=== PATIENT | female | born 1945 | race Caucasian/White ===

== ENCOUNTER → 2017-12-28 10:45 | Outpatient (CLI) | payer OTHER, SELFPAY ==
[2017-12-28 11:24] LABS: Add Manual Diff / Slide Review NO; Basophils Percent Auto 0.5 % (0-2); Eosinophils Percent Auto 0.5 % (2-4); Hematocrit 45.2 % (36-46); Lymphocytes Percent Auto 23.9 % (25-40); Mean Corpuscular HGB Conc 33.3 % (30-36); Mean Corpuscular Hemoglobin 29.3 PG (26-34); Monocytes Percent Auto 7.7 % (3-14); Neutrophils Absolute Auto 6100 /uL (3000-5900); Neutrophils Percent Auto 67.4 % (50-75); Platelet Count 161 X10^3/uL (150-400); Red Blood Cell Count 5.13 X10^6/uL (4.0-5.2); Red Cell Distribution Width 14.5 % (11.6-14.8)
== END ==
PROVIDERS: Family Provider Internal Medicine; PCP Internal Medicine; Visit Provider Internal Medicine
DX: J32.9 Chronic sinusitis, unspecified (principal)
CPT/HCPCS: 36415; 85025

== ENCOUNTER → 2017-12-30 10:57 | Outpatient (CLI) | payer OTHER, SELFPAY ==
--- NOTE | 2017-12-30 | DI.CT.S_ITS ---
PROCEDURE: CT SINUS SCREEN WO CON INDICATIONS: CHRONIC SINUSITIS TECHNIQUE: Noncontrast 3.0 mm axial images acquired from the frontal sinuses to the mid-sella, with coronal and sagittal reformats. For radiation dose reduction, the following was used: automated exposure control, adjustment of mA and/or kV according to patient size. COMPARISON: [facility], RG, CT SINUS, 05/27/2004, 13:04. [facility], MR, BRAIN WITH AND WITHOUT CONTRAS, 02/16/2011, 11:37. FINDINGS: Image quality: Excellent. Sinuses: There is very minimal ethmoid, frontal and sphenoid mucosal thickening. No fluid levels are identified. Appearance is relatively unchanged compared to prior exam of 02/16/11. Ostiomeatal Complexes: Ostiomeatal complexes are patent. Mild narrowing is noted bilaterally secondary to a mild ethmoid bulla air cell appearance. This is unchanged compared to prior exam. No Cynthia cells. Miscellaneous: Visualized intra-orbital contents are normal. No misa bullosa. There is a borderline appearance of paradoxical left middle turbinate. Mild to moderate leftward nasal septal deviation. IMPRESSION: 1. Leftward nasal septal deviation with minimal areas of scattered sinus mucosal thickening. Dictated by: Elizabeth Lomas M.D. on 12/30/2017 at 11:26 Approved by: Elizabeth Lomas M.D. on 12/30/2017 at 11:45
== END ==
PROVIDERS: Family Provider Internal Medicine; PCP Internal Medicine; Visit Provider Internal Medicine
DX: J32.9 Chronic sinusitis, unspecified (principal); J34.2 Deviated nasal septum
CPT/HCPCS: 70486

== ENCOUNTER 2018-01-26 08:10 | Emergency (ER) | payer OTHER, SELFPAY ==
[2018-01-26 08:22] VITALS: BP 168/76; PULSE 102; RESP 16; TEMP 36.2; O2SAT 95; BMI 26.9
--- NOTE | 2018-01-26 08:33 | DI.CT.S_ITS ---
PROCEDURE: CT ABDOMEN PELVIS W CON INDICATIONS: Abdomen pain with history of paritial colectomy TECHNIQUE: After the administration of intravenous contrast, 5 mm thick sections acquired from the diaphragm to the symphysis. 5 mm coronal and sagittal reformats were acquired. For radiation dose reduction, the following was used: automated exposure control, adjustment of mA and/or kV according to patient size. COMPARISON: [facility], CT, ABDOMEN/PELVIS WITH CONTRAST, 03/23/2013, 9:53. [facility], CT, ABDOMEN/PELVIS WITH CONTRAST, 02/17/2013, 14:23. [facility], CT, ABDOMEN/PELVIS WITH CONTRAST, 12/26/2012, 8:48. FINDINGS: Image quality: Excellent. ABDOMEN: Lung bases: Lung bases are clear. Heart size is normal. Solid organs: Liver is normal in size and enhancement. The liver again is seen to contain a lobulated water density cyst superiorly on the left. Gallbladder has been previously resected. Biliary system is non dilated. Pancreas enhances normally. Spleen is normal in size and enhancement. No adrenal nodules. Kidneys demonstrate normal size and enhancement, without hydronephrosis. Peritoneum and bowel: Bowel loops demonstrate normal wall thickness and caliber. No free fluid or air. Nodes and vessels: No retroperitoneal or mesenteric adenopathy by size criteria. Aorta and inferior vena cava are normal in size. Miscellaneous: No ventral hernias. PELVIS: Genitourinary: Bladder wall thickness is normal. Hysterectomy appears to have been performed. Miscellaneous: No inguinal hernias or adenopathy. A normal appendix is found at the right lower quadrant. Several enteric staple lines are seen within the mid and lower left pelvis. No mass lesion identified that would indicate presence of anastomotic recurrence of neoplasm in this patient with reported prior colectomy approximately 5 years ago. Bones: No suspicious bony lesions. No vertebral body compression fractures. IMPRESSION: Postsurgical changes within the abdomen/pelvis as discussed but no evidence of postoperative complication is found. No underlying infection or neoplasm is seen. Normal appendix found. No sign of intestinal obstruction or perforation seen. Dictated by: Chaitanya Yao M.D. on 01/26/2018 at 9:22 Approved by: Chaitanya Yao M.D. on 01/26/2018 at 9:26
--- NOTE | 2018-01-26 08:37 | ED_ITS ---
HPI - Weakness General Chief complaint: Weakness Stated complaint: INSOMNIA, LETHARGIC AND HARD TO DO ANYTHING Time Seen by Provider: 01/26/18 08:22 Source: patient Mode of arrival: ambulatory Limitations: no limitations History of Present Illness HPI Narrative: Patient is a 73-year-old female who presents with a variety of complaints. Overall she is feeling weak and fatigued. She has loss of appetite he has lost about 10 lb over the last 1 month. She feels like he is belching a lot more, she has very mild abdominal discomfort. No chest pain or shortness of breath. She says that she is passing gas but isn't having regular bowel movements. Her reports that she is not sleeping who she is extremely tired and fatigued. She started having essential tremors and was started on Restoril. She denies any fever, no nausea or vomiting Related Data Home Medications Medication Instructions Recorded Confirmed warfarin [Coumadin] #0 02/02/13 enoxaparin [Lovenox] QDAY #0 04/12/13 levothyroxine [Synthroid] PO AMINS #0 04/12/13 omeprazole OR Q DAY #0 04/12/13 Allergies Allergy/AdvReac Type Severity Reaction Status Date / Time Sulfa (Sulfonamide Allergy Mild RASH Verified 01/26/18 08:22 Antibiotics) [SULFA (SULFONAMIDE ANTIBIOTICS)] amoxicillin [AMOXICILLIN] Allergy Unknown VERY Verified 01/26/18 08:22 FLUSHED clavulanic acid Allergy Unknown VERY Verified 01/26/18 08:22 [CLAVULANIC ACID] FLUSHED epinephrine [EPINEPHRINE] Allergy Unknown SHAKING Verified 01/26/18 08:22 WITH DENTAL PROCEDURES fluticasone [FLUTICASONE] Allergy Unknown AGGITATION Verified 01/26/18 08:22 hydromorphone [HYDROMORPHONE] Allergy Unknown HALLUCINATIONS, Verified 01/26/18 08:22 NAUSEA diazepam [From Valium] Allergy Verified 01/26/18 08:22 meclizine Allergy Verified 01/26/18 08:22 Review of Systems Review of Systems All systems reviewed & are unremarkable except as noted in HPI and below Constitutional Reports difficulty sleeping, Reports fatigue, Denies fever(s), Denies frequent falls, Denies headache(s), Denies increased appetite, Reports lethargy, Reports malaise and Reports poor appetite Eyes Denies change in vision, Denies eye discharge, Denies irritation and Denies loss of vision ENT Ears, Nose, Mouth, and Throat: Denies dysphagia, Denies vertigo, Reports dry mouth and Denies headache(s) Cardiovascular Denies chest pain, Denies irregular heart rhythm, Denies lightheadedness, Denies palpitations, Denies dyspnea, Denies dyspnea on exertion and Denies orthopnea Respiratory Denies cough, Denies dyspnea, Denies dyspnea on exertion and Denies wheezing Gastrointestinal Gastrointestinal: Reports as per HPI, Reports belching, Denies bloating, Denies dysphagia, Denies excessive flatus, Reports early satiety, Denies diarrhea and Denies nausea Musculoskeletal Denies back pain, Denies muscle weakness, Denies numbness and Denies tingling Neurologic Denies vertigo, Denies frequent falls, Denies headache(s), Denies loss of vision , Denies numbness and Denies tingling Endocrine Reports fatigue and Denies palpitations Allergic/Immunologic Denies wheezing PFSH Medical History Essential tremor (Acute) History of DVT (deep vein thrombosis) (Acute) Surgical History History of colon resection (Acute) Social History marital status: household members: spouse Smoking Status: Never smoker alcohol intake: never substance use type: does not use during the past year weight has: decreased > 10 lbs Type(s) of exercise: walking Exam Initial Vital Signs Initial Vital Signs: Vital Signs Temperature 97.1 F L 01/26/18 08:22 Pulse Rate 102 H 01/26/18 08:22 Respiratory Rate 16 01/26/18 08:22 Blood Pressure 168/76 H 01/26/18 08:22 Pulse Oximetry 95 01/26/18 08:22 Const General: cooperative and well developed Nutritional Appearance: well nourished Orientation: alert, awake, oriented x3 and not confused [facility] Mouth: No moist mucous membranes and mucous membranes abnormal (Dry) Chest Chest: normal inspection of the chest Resp Effort & Inspection: normal respiratory effort, able to speak in complete sentences, no respiratory distress and no use of accessory muscles Auscultation: clear to auscultation bilaterally, no rales, no rhonchi and no wheezes Cardio Rate: regular rate Rhythm: regular rhythm Heart Sounds: no click, no gallops, no murmurs and no rubs Pulses: normal peripheral pulses GI Palpation: soft, No firm, No guarding, No mass and tender (Mild lower tenderness with) Percussion: normal to percussion Auscultation: hyperactive bowel sounds Skin General: no rashes or lesions noted, No jaundice and No petechiae Neuro General: alert, oriented x3, gait normal and no focal motor deficits Speech: speech normal Motor: tremor (Bilateral hand) Course Orders Ordered: ED Orders 01/26/18 08:23 Complete Blood Count AUTO DIFF Stat Comprehensive Metabolic Panel Stat Lipase Stat Partial Thromboplastin Time Stat Prothrombin Time INR Stat 01/26/18 08:33 CT abdomen pelvis w con Stat Discontinued Medications Sodium Chloride (Normal Saline 0.9%) 1,000 mls @ 150 mls/hr IV CONT STEVEN Last Infusion: 01/26/18 10:34 Dose: 0 mls/hr Admin: 01/26/18 08:55 Dose: 150 mls/hr Pantoprazole Sodium (Protonix) 40 mg IV NOW ONE Stop: 01/26/18 08:38 Last Admin: 01/26/18 08:54 Dose: 40 mg Vital Signs - 8 hr 01/26/18 08:22 01/26/18 10:32 01/26/18 10:34 Temperature 97.1 F L Pulse Rate 102 H 69 55 L Respiratory Rate 16 20 14 Blood Pressure 168/76 H Blood Pressure [Left Arm] 149/62 H 149/62 H Pulse Oximetry 95 99 97 MDM - Weakness Lab Data Result diagrams: 01/26/18 08:23 01/26/18 08:23 Lab Results 01/26/18 01/26/18 01/26/18 Range/Units 08:23 08:23 08:23 WBC 8.2 (4.5-11.0) X10^3/uL RBC 5.55 H (4.0-5.2) X10^6/uL Hgb 16.7 H (12.0-16.0) g/dL Hct 49.3 H (36-46) % MCV 88.8 (80-100) fL MCH 30.1 (26-34) PG MCHC 33.9 (30-36) % RDW 15.2 H (11.6-14.8) % Plt Count 164 (150-400) X10^3/uL Neut % (Auto) 66.2 (50-75) % Lymph % (Auto) 25.5 (25-40) % [place] % (Auto) 7.1 (3-14) % Eos % (Auto) 0.6 L (2-4) % Baso % (Auto) 0.6 (0-2) % Neut # (Auto) 5400 (0953-6180) /uL PT 11.4 (10.1-12.7) SECONDS INR 1.1 (0.9-1.3) APTT 39 H (26.4-36.2) SECONDS Sodium 145 (137-145) mmol/L Potassium 4.1 (3.4-5.1) mmol/L Chloride 106 (98-107) mmol/L Carbon Dioxide 28 (22-32) mmol/L BUN 17 (7-17) mg/dL Creatinine 1.10 H (0.52-1.04) mg/dL Estimated GFR 48.7 L (>60) mL/min BUN/Creatinine Ratio 15.5 (6-22) Glucose 140 H (80-110) mg/dL Calcium 9.7 (8.4-10.2) mg/dL Total Bilirubin 0.7 (0.2-1.3) mg/dL AST 21 (14-36) IU/L ALT 25 (9-52) IU/L Alkaline Phosphatase 42 (38-126) U/L Total Protein 7.6 (6.3-8.2) g/dL Albumin 4.6 (3.5-5.0) g/dL Globulin 3.0 (1.7-4.1) g/dL Albumin/Globulin Ratio 1.5 (1.0-2.8) Lipase 125 (23-300) U/L Imaging Data CT scan - abdomen: Radiologist's impression: PROCEDURE: CT ABDOMEN PELVIS W CON INDICATIONS: Abdomen pain with history of paritial colectomy TECHNIQUE: After the administration of intravenous contrast, 5 mm thick sections acquired from the diaphragm to the symphysis. 5 mm coronal and sagittal reformats were acquired. For radiation dose reduction, the following was used: automated exposure control, adjustment of mA and/or kV according to patient size. COMPARISON: [facility], CT, ABDOMEN/PELVIS WITH CONTRAST, 03/23/2013, 9: 53. [facility], CT, ABDOMEN/PELVIS WITH CONTRAST, 02/17/2013, 14:23. [facility], CT, ABDOMEN/PELVIS WITH CONTRAST, 12/26/2012, 8:48. FINDINGS: Image quality: Excellent. ABDOMEN: Lung bases: Lung bases are clear. Heart size is normal. Solid organs: Liver is normal in size and enhancement. The liver again is seen to contain a lobulated water density cyst superiorly on the left. Gallbladder has been previously resected. Biliary system is non dilated. Pancreas enhances normally. Spleen is normal in size and enhancement. No adrenal nodules. Kidneys demonstrate normal size and enhancement, without hydronephrosis. Peritoneum and bowel: Bowel loops demonstrate normal wall thickness and caliber. No free fluid or air. Nodes and vessels: No retroperitoneal or mesenteric adenopathy by size criteria. Aorta and inferior vena cava are normal in size. Miscellaneous: No ventral hernias. PELVIS: Genitourinary: Bladder wall thickness is normal. Hysterectomy appears to have been performed. Miscellaneous: No inguinal hernias or adenopathy. A normal appendix is found at the right lower quadrant. Several enteric staple lines are seen within the mid and lower left pelvis. No mass lesion identified that would indicate presence of anastomotic recurrence of neoplasm in this patient with reported prior colectomy approximately 5 years ago. Bones: No suspicious bony lesions. No vertebral body compression fractures. IMPRESSION: Postsurgical changes within the abdomen/pelvis as discussed but no evidence of postoperative complication is found. No underlying infection or neoplasm is seen. Normal appendix found. No sign of intestinal obstruction or perforation seen. Dictated by: Chaitanya Yao M.D. on 01/26/2018 at 9:22 MDM Narrative Medical decision making narrative: She is tolerating oral fluids she has had 1 L of IV fluids CT and blood work within normal limits. She has been having ongoing problems for over a month. She started Restoril which may be complicating her problems. Recommend stopping the Restoril however the problems that she is still unable to sleep. So I recommended Benadryl. I discussed all findings with the patient and spouse. Education has been performed regarding treatment plan, diagnosis, warning signs and symptoms and all concerns have been addressed. Verbally agree with and understood all of the above. Discharge Plan Departure Patient Disposition: Home, Self-Care Clinical Impression: Benign essential tremor, Insomnia Discharge Date/Time: 01/26/18 11:13 Interventions: ED Discharge Assessment Last Done: 01/26/18 10:33 Instructions: Insomnia, Benign Essential Tremor Activity Restrictions/Additional Instructions: *You have been diagnosed with essential tremor, insomnia *What to do: Blood work and CT scan today within normal limits. Slightly dehydrated *Medications: Restoril-1 tablet at night for the next 2 nights, if unable to sleep still then try taking a Benadryl 25mg -then decrease Restoril to every other night for 2-3 doses, and continue taking Benadryl 1 tablet every night to help with sleep -then stopped taking Restoril completely *Follow up with your primary care provider in 2-3 days [and follow up with ortho , urology etc] *Return to ER if you should have [such as] [or] any new, worsening or concerning symptoms Prescriptions: No Action warfarin [Coumadin] 4 MG tablet Qty: 0 RF: 0 enoxaparin [Lovenox] 100 MG/1 ML syringe QDAY Qty: 0 RF: 0 omeprazole 40 MG capsule,delayed release(DR/EC) OR Q DAY Qty: 0 RF: 0 levothyroxine [Synthroid] 75 MCG tablet PO AMINS Qty: 0 RF: 0 Referrals: Dulce Jennings MD [Primary Care Provider] -
[2018-01-26 08:42] LABS: Add Manual Diff / Slide Review NO; Basophils Percent Auto 0.6 % (0-2); Eosinophils Percent Auto 0.6 % (2-4); Hematocrit 49.3 % (36-46); Hemoglobin 16.7 g/dL (12.0-16.0); Lymphocytes Percent Auto 25.5 % (25-40); Mean Corpuscular HGB Conc 33.9 % (30-36); Mean Corpuscular Hemoglobin 30.1 PG (26-34); Mean Corpuscular Volume 88.8 fL (80-100); Monocytes Percent Auto 7.1 % (3-14); Neutrophils Absolute Auto 5400 /uL (3000-5900); Neutrophils Percent Auto 66.2 % (50-75); Platelet Count 164 X10^3/uL (150-400); Red Blood Cell Count 5.55 X10^6/uL (4.0-5.2); Red Cell Distribution Width 15.2 % (11.6-14.8); White Blood Cell Count 8.2 X10^3/uL (4.5-11.0)
[2018-01-26 08:43] LABS: INR 1.1 (0.9-1.3); Prothrombin Time 11.4 SECONDS (10.1-12.7)
[2018-01-26 08:46] LABS: PTT Partial Thromboplastin Tim 39 SECONDS (26.4-36.2)
[2018-01-26 08:51] LABS: Alanine Aminotransferase 25 IU/L (9-52); Albumin 4.6 g/dL (3.5-5.0); Albumin Globulin Ratio 1.5 (1.0-2.8); Alkaline Phosphatase 42 U/L (38-126); Aspartate Aminotransferase 21 IU/L (14-36); BUN Creatinine Ratio 15.5 (6-22); Bilirubin Total 0.7 mg/dL (0.2-1.3); Blood Urea Nitrogen 17 mg/dL (7-17); Calcium 9.7 mg/dL (8.4-10.2); Carbon Dioxide 28 mmol/L (22-32); Chloride 106 mmol/L (98-107); Estimated Glomerular Filt Rate 48.7 mL/min (>60); Glucose 140 mg/dL (80-110); HEMOLYSIS 15 (0-50); Lipase 125 U/L (23-300); Potassium 4.1 mmol/L (3.4-5.1); Sodium 145 mmol/L (137-145); Total Protein 7.6 g/dL (6.3-8.2)
[2018-01-26] MEDS: PANTOPRAZOLE 40 MG VIAL IV (08:54)
[2018-01-26] MEDS: SODIUM CHLORIDE 0.9% 1,000 ML 150 ML IV (08:55)
--- NOTE | 2018-01-26 09:00 | PC.NURSE ---
NS 1000ml given at 999ml/hr per provider verbal order.
[2018-01-26 10:32] VITALS: BP 149/62; PULSE 69; RESP 20; O2SAT 99
[2018-01-26 10:34] VITALS: BP 149/62; PULSE 55; RESP 14; O2SAT 97
== END 2018-01-26 11:13 | disposition home or self-care (01) ==
PROVIDERS: Emergency Provider Emergency Medicine; Family Provider Physician Assistant; PCP Internal Medicine
DX: G25.0 Essential tremor (principal); G47.00 Insomnia, unspecified
CPT/HCPCS: 36591; 74177; 80053; 81003; 83690; 85025; 85610; 85730; 96361; 96374; 99283; 99285; C9113; Q9967

== ENCOUNTER 2018-02-13 13:07 | Emergency (ER) | payer OTHER, SELFPAY ==
[2018-02-13 13:11] VITALS: BP 152/84; PULSE 80; RESP 20; TEMP 37.1; O2SAT 99; BMI 28.6
--- NOTE | 2018-02-13 13:36 | ED.WEAKNESS ---
HPI - Weakness <Mavis Cabrera PA-C - Last Filed: 02/13/18 21:54> General Chief complaint: Weakness Stated complaint: severe chronic insomnia, meds causing problems Time Seen by Provider: 02/13/18 13:35 Source: patient and family Mode of arrival: ambulatory Limitations: no limitations History of Present Illness HPI Narrative: This 73-year-old female comes in due to persistent insomnia for well over a month now. She states that she is exhausted and much less active due to persistent fatigue associated with this. She states that she has less appetite and has lost weight. She has tried various medications prescribed by her primary care office and states none are effective aside from Restoril with which she will sleep for may be 3-4 hours but feels groggy and not rested. She has also been prescribed Benadryl which causes dry mouth, trazodone, and Remeron all of which were ineffective, and Remeron caused some burning type of headache. She has tried combining meds with no improvement. Her states that he was talking with their pharmacist who mentioned several Z drugs that might be worth trying as she has not had these in the past. Patient admits that she has had increased stress in the last several months including her brother being very ill, dealing with moving planned, and friends passing away which have caused her to be anxious and she thinks interfere with sleep. She tends to lay awake in bed for hours worrying and not be able to fall asleep. She and her come in today basically because both of them are feeling like she needs to try something else for sleep and don't feel that this should wait. She denies any acute symptoms such as chest pain, abdominal pain or dyspnea. No new difficulties with speech or coordination. She has been recently diagnosed with essential tremor. States there is no tremor keeping her from sleep at night. She has a history of chronic intermittent vertigo which has recurred somewhat since she has more difficulty sleeping, but no acute symptoms or current symptoms. She states that she has difficulty swallowing if she gets dry mouth from Benadryl, otherwise no difficulty with speech or swallowing or coordination. The only new symptom she notes is noticing some white coating on her tongue and wondering if this could be thrush, but does not have any pain or irritation. Related Data Home Medications Medication Instructions Recorded Confirmed warfarin [Coumadin] #0 02/02/13 enoxaparin [Lovenox] QDAY #0 04/12/13 levothyroxine [Synthroid] PO AMINS #0 04/12/13 omeprazole OR Q DAY #0 04/12/13 Previous Rx's Medication Instructions Recorded nystatin 5 ml PO QID 7 Days #150 ml 02/13/18 zaleplon [Sonata] 10 mg PO DAILY PRN #7 cap 02/13/18 Allergies Allergy/AdvReac Type Severity Reaction Status Date / Time Sulfa (Sulfonamide Allergy Mild RASH Verified 02/13/18 13:17 Antibiotics) [SULFA (SULFONAMIDE ANTIBIOTICS)] amoxicillin [AMOXICILLIN] Allergy Unknown VERY Verified 02/13/18 13:17 FLUSHED clavulanic acid Allergy Unknown VERY Verified 02/13/18 13:17 [CLAVULANIC ACID] FLUSHED epinephrine [EPINEPHRINE] Allergy Unknown SHAKING Verified 02/13/18 13:17 WITH DENTAL PROCEDURES fluticasone [FLUTICASONE] Allergy Unknown AGGITATION Verified 02/13/18 13:17 hydromorphone [HYDROMORPHONE] Allergy Unknown HALLUCINATIONS, Verified 02/13/18 13:17 NAUSEA diazepam [From Valium] Allergy Verified 02/13/18 13:17 meclizine Allergy Verified 02/13/18 13:17 Review of Systems <Mavis Cabrera PA-C - Last Filed: 02/13/18 21:54> Review of Systems All systems reviewed & are unremarkable except as noted in HPI and below Exam <Mavis Cabrera PA-C - Last Filed: 02/13/18 21:54> Narrative Exam Narrative: GENERAL APPEARANCE: Patient sitting comfortably, in no distress. HEENT: PERRL, EOMI, moderate left lid ptosis noted, there is mild white coating on the tongue that is even and does not scrape off with tongue depressor, normal oropharynx NECK: Supple LUNGS: Clear to auscultation bilaterally. HEART: Rate and rhythm regular without murmur, normal S1 and S2, no S3 or S4. ABDOMEN: Soft, NT, ND, + BS x 4 quadrants NEUROLOGIC: Alert and oriented, normal speech and coordination, gait is slightly shortened with a wide base, occasional left upper extremity tremor noted EXTREMITIES: No edema Initial Vital Signs Initial Vital Signs: Vital Signs Temperature 98.8 F 02/13/18 13:11 Pulse Rate 80 02/13/18 13:11 Respiratory Rate 20 02/13/18 13:11 Blood Pressure 152/84 H 02/13/18 13:11 Pulse Oximetry 99 02/13/18 13:11 <Breezy Stewart MD - Last Filed: 02/14/18 08:57> Initial Vital Signs Initial Vital Signs: Vital Signs Temperature 98.8 F 02/13/18 13:11 Pulse Rate 80 02/13/18 13:11 Respiratory Rate 20 02/13/18 13:11 Blood Pressure 152/84 H 02/13/18 13:11 Pulse Oximetry 99 02/13/18 13:11 Course <Mavis Cabrera PA-C - Last Filed: 02/13/18 21:54> Additional Information: I had a long discussion with patient and her regarding contribution of recent stressors and anxiety to her insomnia, and need for behavioral treatment measures rather than just medication, and they seem to understand this. Advised to discuss with PCP whether daily medications such as Zoloft may be helpful in treating underlying condition. She has numerous ongoing medical issues including newly diagnosed tremor, somewhat shuffling gait noted at visit today but she has no acute issues and in fact GI symptoms resolved since last visit. She was given a prescription to try sonata prior to follow up with her PCP. She has no history of seizure disorder or sleep walking. Discussed with she and her that there is basically no sleep medication that is recommended for the elderly for any long-term, but reasonable to try for short-term and they are agreeable Vital Signs - 8 hr 02/13/18 13:11 Temperature 98.8 F Pulse Rate 80 Respiratory Rate 20 Blood Pressure 152/84 H Pulse Oximetry 99 <Breezy Stewart MD - Last Filed: 02/14/18 08:57> Vital Signs - 8 hr 02/13/18 13:11 Temperature 98.8 F Pulse Rate 80 Respiratory Rate 20 Blood Pressure 152/84 H Pulse Oximetry 99 Discharge Plan Departure Patient Disposition: Home, Self-Care Clinical Impression: Insomnia Discharge Date/Time: 02/13/18 15:05 Interventions: ED Discharge Assessment Last Done: 02/13/18 15:05 Instructions: No More Sleepless Nights: Dealing With Insomnia, DI for Insomnia Activity Restrictions/Additional Instructions: It seems as though your insomnia correlates time horn with your stressors rather than a specific medical condition. It is really important to make the behavioral changes that we talked about, including only getting in bed when you feel sleepy. You should be in a quiet environment and do relaxing activities in the evening before bed, i.e. a bath, listening to music or whatever you find relaxing. You can try the sleeping pill that I gave you about 30-45 minutes before you want to go to bed, however you should only get in bed when you are feeling sleepy. If you are not falling asleep within 20-30 minutes, you should get out of bed and go into another room and do a quiet activity until you feel sleepy again, then go back to bed. Try this as many times as needed until you fall asleep (yes, it requires a lot of work!). I hope that this new medication works for you, but over the terminal operations manager, there is no sleeping pill that is recommended as people get older due to increased risk of sedation, falls, and side effects so please make sure that you follow-up with Dr. Jennings in the next few days to assess your progress and determine whether you need further testing for other ongoing medical problems. There are several other medications that could be tried such as Ambien (Zolpeidem), Doxepin, or Neurontin to help you sleep, all have similar risks of side effects. I did send in a refll of nystatin for you in case you need it for thrush (it does not appear that you have that today but if your tongue is getting worse or painful you can start it). Please return if you have acute changes prior to following up with Dr. Jennings Prescriptions: New zaleplon [Sonata] 10 mg capsule 10 mg PO DAILY PRN (Reason: insomnia) Qty: 7 RF: 0 nystatin 100,000 unit/mL suspension 5 ml PO QID 7 Days Qty: 150 RF: 0 No Action warfarin [Coumadin] 4 MG tablet Qty: 0 RF: 0 enoxaparin [Lovenox] 100 MG/1 ML syringe QDAY Qty: 0 RF: 0 omeprazole 40 MG capsule,delayed release(DR/EC) OR Q DAY Qty: 0 RF: 0 levothyroxine [Synthroid] 75 MCG tablet PO AMINS Qty: 0 RF: 0 Referrals: Dulce Jennings MD [Primary Care Provider] - <Breezy Stewart MD - Last Filed: 02/14/18 08:57> Sign Out Provider Sign Out Attestation: The PA/LOADING UNIT OPERATOR SEATING functioned independently for the care of this pt, I was available, but not asked to participate in care. I am unable to determine appropriateness of management without personally examining the pt.
--- NOTE | 2018-02-13 13:50 | PC.NURSE ---
Addendum entered by Florence Xavier R.N. 02/13/18 13:57: taking both mirtazapine and temazepam to try and sleep. Original Note: Pt has been dealing with insomnia since beginning of January, has been taking mirtazapine at night without help. See's Dr Jennings. placed her on an antidepressant. Reports she sleeps max 3 hrs in 24 hr period. describes her as a zombie along with loss of appetite. Denies abd pain/nausea/vomiting.
== END 2018-02-13 15:05 | disposition home or self-care (01) ==
PROVIDERS: Emergency Provider Internal Medicine; PCP Internal Medicine
DX: G47.00 Insomnia, unspecified (principal); F51.9 Sleep disorder not due to a substance or known physiological condition, unspecified
CPT/HCPCS: 99282

== ENCOUNTER → 2018-03-21 16:23 | Outpatient (CLI) | payer OTHER, SELFPAY ==
--- NOTE | 2018-03-21 16:27 | DI.MRI.S_ITS ---
PROCEDURE: MR HEAD/BRAIN WO CON INDICATIONS: HEADACHE TECHNIQUE: Non-contrast axial T1 spin echo, axial T2 fast spin echo, sagittal and axial FLAIR, coronal T2 fast spin echo, axial gradient echo, axial diffusion and ADC through the brain. COMPARISON: [facility], MR, BRAIN WITH AND WITHOUT CONTRAS, 02/16/2011, 11:37. [facility], CT, HEAD WITHOUT CONTRAST, 02/15/2011, 18:05. [facility], CT, CT SINUS SCREEN WO CON, 12/30/2017, 10:56. FINDINGS: Image quality: Excellent. CSF spaces: Ventricles appear symmetric in size and shape. Basal cisterns are patent. No extra-axial fluid collections. Brain: No intracranial bleeds or mass effects. There is cerebral volume loss for age. There are periventricular and deep white matter chronic small vessel ischemic changes. Brainstem appears normal. Diffusion-weighted images show no acute ischemic insults. No chronic ischemic insults. Normal intravascular flow voids are present. Skull and face: Calvarial bone marrow is normal in signal. Orbits are normal. Sinuses: Sinuses and mastoids are clear. IMPRESSION: Unremarkable intracranial study for age, without an imaging explanation for the patient's presenting history of headaches No significant change compared to 2010. Note is made of age-appropriate brain parenchymal volume loss and chronic small vessel ischemic changes. Dictated by: Dimitri Garcia M.D. on 03/21/2018 at 16:51 Approved by: Dimitri Garcia M.D. on 03/21/2018 at 16:53
== END ==
PROVIDERS: PCP Internal Medicine; Visit Provider Internal Medicine
DX: R51 Headache (principal)
CPT/HCPCS: 70551

== ENCOUNTER 2018-03-25 20:47 | Emergency (ER) | payer OTHER, SELFPAY ==
[2018-03-25 21:00] VITALS: BP 148/74; PULSE 63; RESP 18; TEMP 37.1; O2SAT 96; BMI 27.4
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
[2018-03-25 21:50] LABS: RBC Urine None Seen (0-5/HPF)
[2018-03-25 22:23] LABS: Add Manual Diff / Slide Review NO; Eosinophils Percent Auto 0.7 % (2-4); Hematocrit 43.8 % (36-46); Hemoglobin 14.8 g/dL (12.0-16.0); Lymphocytes Percent Auto 32.3 % (25-40); Mean Corpuscular HGB Conc 33.6 % (30-36); Mean Corpuscular Hemoglobin 29.9 PG (26-34); Mean Corpuscular Volume 88.9 fL (80-100); Monocytes Percent Auto 9.2 % (3-14); Neutrophils Absolute Auto 4800 /uL (3000-5900); Neutrophils Percent Auto 56.8 % (50-75); Platelet Count 142 X10^3/uL (150-400); Red Blood Cell Count 4.93 X10^6/uL (4.0-5.2); Red Cell Distribution Width 14.3 % (11.6-14.8); White Blood Cell Count 8.5 X10^3/uL (4.5-11.0)
[2018-03-25 22:28] LABS: Ammonia (NH3) < 9.0 umol/L (9-30)
[2018-03-25 22:29] LABS: Phosphorous 3.8 mg/dL (2.8-4.1); Salicylate < 1.0 mg/dL (<20)
[2018-03-25 22:31] LABS: Acetaminophen < 10 ug/mL (10-30); Alanine Aminotransferase 26 IU/L (9-52); Albumin 4.1 g/dL (3.5-5.0); Albumin Globulin Ratio 1.7 (1.0-2.8); Alkaline Phosphatase 37 U/L (38-126); Aspartate Aminotransferase 20 IU/L (14-36); BUN Creatinine Ratio 24.5 (6-22); Bilirubin Total 0.5 mg/dL (0.2-1.3); Blood Urea Nitrogen 27 mg/dL (7-17); Calcium 9.5 mg/dL (8.4-10.2); Carbon Dioxide 24 mmol/L (22-32); Chloride 111 mmol/L (98-107); Estimated Glomerular Filt Rate 48.7 mL/min (>60); Ethanol (ETOH) < 10 mg/dL; Globulin 2.4 g/dL (1.7-4.1); Glucose 101 mg/dL (80-110); HEMOLYSIS < 15 (0-50); Lipase 154 U/L (23-300); Magnesium 2.1 mg/dL (1.6-2.3); Potassium 3.8 mmol/L (3.4-5.1); Sodium 146 mmol/L (137-145); Total Protein 6.5 g/dL (6.3-8.2)
[2018-03-25 23:06] LABS: Thyroid Stimulating Hormone 1.79 uIU/mL (0.47-4.68)
[2018-03-25 23:11] LABS: Appearance Urine UA CLEAR; Bilirubin Urine UA NEGATIVE (NEGATIVE); Color Urine UA YELLOW; Glucose Urine UA NEGATIVE (Normal); Ketones Urine UA NEGATIVE (NEGATIVE); Leukocyte Esterase Urine UA TRACE (NEGATIVE); Nitrite Urine UA Negative (Negative); Occult Blood Urine UA NEGATIVE (Negative); Protein Urine UA NEGATIVE (Negative); Specific Gravity Urine UA <=1.005 (1.000-1.035); Urobilinogen Urine UA 0.2 E.U./dL (0.2); pH Urine UA 5.5 (4.5-8.0)
[2018-03-25 23:16] LABS: Urine Amphetamines Negative (Negative); Urine Barbiturates Negative (Negative); Urine Benzodiazepines Negative (Negative); Urine Cocaine Negative (Negative); Urine MDMA Negative (Negative); Urine Methadone Negative (Negative); Urine Methamphetamines Negative (Negative); Urine Morphine/Opi cutoff 2000 Negative (Negative); Urine Oxycodone Negative (Negative); Urine Phencyclidine Negative (Negative); Urine Tetrahydrocannabinol Negative (Negative); Urine Tricyclic Antidepressant Positive (Negative)
[2018-03-25 23:21] LABS: Squamous Epithelial Cell Urine 0-1 /HPF; WBC Urine 1-5/HPF (0-5/HPF)
[2018-03-25 23:22] LABS: Bacteria Urine Moderate (10-30); Culture Indicated Urine Specimen Cultured
[2018-03-26] MEDS: ACETAMINOPHEN 325 MG TABLET 650 MG PO (01:20)
[2018-03-26 01:25] VITALS: BP 151/71; PULSE 63; RESP 16; O2SAT 96
--- NOTE | 2018-03-26 02:06 | PC.NURSE ---
Late Entry at 0130-Dr Loo okayed for pt to take her own Remiron 30mg tab for sleep aid and pt took it.
[2018-03-26 07:20] VITALS: BP 130/69; PULSE 60; RESP 18; O2SAT 96
[2018-03-26] MEDS: LEVOTHYROXINE 88 MCG TABLET PO (07:48)
[2018-03-26] MEDS: ASPIRIN EC 81 MG TABLET PO (07:51)
[2018-03-26 08:24] VITALS: BP 153/76; PULSE 64; RESP 16; TEMP 36.9; O2SAT 100
--- NOTE | 2018-03-28 08:44 | PC.NURSE ---
Dr Loo ordered Macrobid 100mg PO BID x5days, for positive urine culture of Escherichia coli. Pt continues to be admitted at [facility]. Called [phone] reported results to Priyanka and faxed culture report and Dr Garcia medication recommendation to her at [phone]
== END 2018-03-26 09:05 ==
PROVIDERS: Emergency Medicine; Emergency Provider Emergency Medicine; PCP Internal Medicine
DX: G47.00 Insomnia, unspecified (principal); R45.851 Suicidal ideations; R44.0 Auditory hallucinations
CPT/HCPCS: 80053; 80305; 80320; 80329; 81001; 81003; 81015; 82140; 83690; 83735; 84100; 84443; 85025; 87077; 87086; 87186; 93005; 99284; G0480

== ENCOUNTER 2018-05-19 11:15 | Outpatient (RCR) | payer OTHER, SELFPAY ==
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
--- NOTE | 2018-04-22 09:45 | PT.OIE ---
Current Diagnoses Muscle weakness (generalized) (04/22/18) Other abnormalities of gait and mobility (04/22/18) Past Medical History (Last Reviewed 03/25/18 @ 22:53 by Salvador Loo DO) Chronic insomnia (Acute) Depression (Acute) Essential tremor (Acute) History of DVT (deep vein thrombosis) (Acute) Hyperglycemia (Acute) Hyperlipidemia (Acute) Hypothyroidism (Acute) Osteoporosis (Acute) Varicose veins of both lower extremities (Acute) Past Surgical History (Last Reviewed 03/25/18 @ 22:53 by Salvador Loo DO) History of colon resection (Acute) Provider Visit Care Team Role Provider Type Dulce Jennings MD Attending Provider Physician Primary Care Provider Specialty: Internal Medicine Address: [address] [place] [address], [facility] Email: Physical Therapy Initial Evaluation PT-OP-A Visit Information Start: 04/25/18 09:56 Freq: Status: Active Protocol: Document 04/22/18 09:00 DCW (Rec: 04/25/18 10:18 DCW [id number]) Out-Patient Physical Therapy Visit Information Visit Information Visit Type Initial Evaluation Visit Start Time 09:00 Visit Stop Time 09:45 Total Visit Minutes 45 Visit Number 1 Number of CUSTOM BIKE BUILDER Visits 0 Evaluation Information Evaluation Date 04/22/18 PT-OP-B Current Condition Start: 04/25/18 09:56 Freq: Status: Active Protocol: Document 04/22/18 09:00 DCW (Rec: 04/25/18 10:18 DCW [id number]) Current Condition History of Current Condition Onset Date Three months Current Complaints Generalized weakness and instability History of Current Condition Pt is a 73 year old female complaining of a three month history of generalized weakness and imbalance. Pt reports she is now unable to stand up by herself from a deep knee bend, and has had a few falls, one of which resulted in a wrist fracture. Pt reports she feels most of her weakness in in her upper leg and abdomen, and also notes that four years ago, she had colon surgery, and was cut all the way up my abdomen. Treatment Goals Patient/Caregiver Goals Pt's goal is to feel more stable when moving around, and to get her legs stronger. Prior Functional Status Baseline Function- ADL's Independent Baseline Function- Mobility Independent PT-OP-C Subjective Start: 04/25/18 09:56 Freq: Status: Active Protocol: Document 04/22/18 09:00 DCW (Rec: 04/25/18 10:18 DCW [id number]) OP-PT Pain Assessment Pain Assessment Grid Paper Pain Assessment Grid Completed Yes Location Left Knee Intensity 2 Scale Used Numeric (1 - 10) Description- Other General achyness PT-OP-D Balance Start: 04/25/18 09:56 Freq: Status: Active Protocol: Document 04/22/18 09:00 DCW (Rec: 04/25/18 10:18 DCW [id number]) OP-PT Balance Assessment Sitting Balance Static Sitting Balance Ability Normal Dynamic Sitting Balance Ability Normal Standing Balance Static Standing Balance Ability Normal Dynamic Standing Balance Ability Good Balance Tests Gage Balance Test Gage Balance Test Score 53/56 Gage Impairment Rating 1 to 19% Impaired (Score 45-55 ) Gage Balance Assessment Evaluation Sitting to Standing Ability Independent w/out Hands Unsupported Stance Safely- 2 minutes Sitting Unsupported, Feet on Floor Safely- 2 minutes Standing to Sitting Ability Safely, Minimal Hand Use Transfer Ability Safely, Minimal Hand Use Unsupported Stance- Eyes Closed Safely, 10 seconds Unsupported Stance- Eyes Open Independent, 1 minute Reaching Forward Standing Safely, 5 inches Pick- Up Object From Floor Independent/Safe Look Behind Shoulder - Standing Shifts Weight Well Turning 360 Degrees Turns slowly, but safely Unsupported Stance, Alternating Feet on (I)- 8 Steps in 20 secs Stair Unsupported Tandem Stance Achieves Tandem Unilateral Leg Stance Lifts Leg/Holds 10 secs Total Score Gage Total Score (out of 56 points) 53 Gage Impairment Rating 1 to 19% Impaired (Score 45-55 ) Villalobos Fall Scale Copyright Permission Wilfredo COWART, Wilfredo RM, Chad SJ. Development of a scale to identify the fall- prone patient. Can J Aging 1989;8;366-7. Liz Villalobos (2009). Preventing patient falls. (2nd ed). [place]: Ruiz. PT-OP-E Functional Tests Start: 04/25/18 09:56 Freq: Status: Active Protocol: Document 04/22/18 09:00 DCW (Rec: 04/25/18 10:18 DCW [id number]) Functional Tests Dynamic Gait Index (DGI) Score 21/24 DGI Impairment Rating 1 to <20% Impaired (Score 20- 23) Functional Gait Assessment Score 25/30 Functional Gait Assessment Impairment 1 to <20% Impaired (Score 25- Rating 29) PT-OP-M Strength Start: 04/25/18 09:56 Freq: Status: Active Protocol: Document 04/22/18 09:00 DCW (Rec: 04/25/18 10:18 DCW [id number]) Trunk Strength Trunk Manual Muscle Testing Core Stabilization 4-/5 - Difficulty holding posterior pelvic tilt with single SLR for longer than 3-5 seconds Shoulder Strength Shoulder Manual Muscle Testing Right Flexion 4 Good Abduction (C5) 4 Good External Rotation 4 Good Internal Rotation 4 Good Left Flexion 4 Good Abduction (C5) 4 Good External Rotation 4 Good Internal Rotation 4 Good Elbow/Forearm Strength Elbow and Forearm Manual Muscle Testing Right Flexion (C6) 4+ Good+ Extension (C7) 4 Good Left Flexion (C6) 4+ Good+ Extension (C7) 4 Good Hip Strength Hip Manual Muscle Testing Right Flexion (L2) 4 Good Abduction 4+ Good+ Adduction 4+ Good+ External Rotation 4 Good Internal Rotation 4+ Good+ Left Flexion (L2) 4 Good Abduction 4+ Good+ Adduction 4+ Good+ External Rotation 4+ Good+ Internal Rotation 4+ Good+ Knee Strength Knee Manual Muscle Testing Right Flexion (S2) 4+ Good+ Extension (L3) 4+ Good+ Left Flexion (S2) 4+ Good+ Extension (L3) 4+ Good+ PT-OP-Q Treatments Start: 04/25/18 09:56 Freq: Status: Active Protocol: Document 04/22/18 09:00 DCW (Rec: 04/25/18 10:18 [facility] [id number]) Therapeutic Exercises Supine Exercises PPT /c TrA - Alternating SLR Supine Exercise Name PPT /c TrA activation - Alternating SLR Side bilateral Reps/Minutes 5 second hold PPT /c TrA activation Supine Exercise Name Posterior Pelvic Tilt with Trans Ab contraction Reps/Minutes 5 second hold PT-OP-T Assessment and Plan Start: 04/25/18 09:56 Freq: Status: Active Protocol: Document 04/22/18 09:00 DCW (Rec: 04/25/18 10:18 DCW [id number]) Physical Therapy Assessment Rehab Potential Rehabilitation Potential Excellent Evaluation Complexity Number of Personal Factors/Comorbidities 1-2 Number of Body Systems Impaired 1-2 Clinical Presentation at Evaluation Stable Impairments Impairments Activity Tolerance Balance Strength Goals Three Impairment FGA Group Home Goal (LTG) Pt to score 28/30 on the FGA LTG Duration 06/22/18 Two Impairment Core Strength Short Term Goal (STG) Pt to be able to hold a posterior pelvic tilt with both legs raised six inches for 10 seconds STG Duration 05/23/18 One Impairment Pt does not have an appropriate home exercise program Short Term Goal (STG) Pt to be independent and compliant with an appropriate HEP STG Duration 05/23/18 Assessment Summary Assessment Pt presents with what appear to be minimal deficits in balance and strength. Her FGA score of 25/30 is very close to her age-group average (24.9 ), and no balance testing shows an increased falls risk. Pt does have some mild general weakness in b oth her upper extremities and lower extremities, and especially in her core, likely due to her history of surgical trauma to the area. Pt will likely progress well in skilled therapy, focusing mainly on core and some UE/LE strengthening, in addition to some simple balance training. Look for patient to advance quickly, and will likely discharge to an independent HEP after 6-10 visits Physical Therapy Plan Frequency and Duration Frequency of Treatment 2x/Week Duration of Treatment 2 months Plan of Care Start Date 04/22/18 Plan of Care End Date 06/22/18 Therapeutic Interventions Therapeutic Interventions Aquatic Therapy Balance Training Home Exercise Program Manual Therapy Therapeutic Activities Therapeutic Exercises Next Visit Focus/Plan Next Note Type Treatment Note Next Visit Plan Abdominal strengthening, LE/UE strengthening, balance training
--- NOTE | 2018-04-26 11:59 | PT.OTN ---
Current Diagnoses Muscle weakness (generalized) (04/26/18) Physical Therapy Treatment Note PT-OP-A Visit Information Start: 04/25/18 09:56 Freq: Status: Active Protocol: Document 04/26/18 11:15 DCW (Rec: 04/26/18 11:59 DCW [id number]) Out-Patient Physical Therapy Visit Information Visit Information Visit Type Initial Evaluation Visit Start Time 11:15 Visit Stop Time 12:00 Total Visit Minutes 45 Visit Number 2 Number of WARD SERVICE SUPERVISOR Visits 0 Evaluation Information Evaluation Date 04/22/18 PT-OP-B Current Condition Start: 04/25/18 09:56 Freq: Status: Active Protocol: Document 04/22/18 09:00 DCW (Rec: 04/25/18 10:18 DCW [id number]) Current Condition History of Current Condition Onset Date Three months Current Complaints Generalized weakness and instability History of Current Condition Pt is a 73 year old female complaining of a three month history of generalized weakness and imbalance. Pt reports she is now unable to stand up by herself from a deep knee bend, and has had a few falls, one of which resulted in a wrist fracture. Pt reports she feels most of her weakness in in her upper leg and abdomen, and also notes that four years ago, she had colon surgery, and was cut all the way up my abdomen. Treatment Goals Patient/Caregiver Goals Pt's goal is to feel more stable when moving around, and to get her legs stronger. Prior Functional Status Baseline Function- ADL's Independent Baseline Function- Mobility Independent PT-OP-C Subjective Start: 04/25/18 09:56 Freq: Status: Active Protocol: Document 04/26/18 11:15 DCW (Rec: 04/26/18 11:59 DCW [id number]) OP-PT Subjective Patient Comments Patient Comments Pt reports she [facility]. PT-OP-D Balance Start: 04/25/18 09:56 Freq: Status: Active Protocol: Document 04/22/18 09:00 DCW (Rec: 04/25/18 10:18 DCW [id number]) OP-PT Balance Assessment Sitting Balance Static Sitting Balance Ability Normal Dynamic Sitting Balance Ability Normal Standing Balance Static Standing Balance Ability Normal Dynamic Standing Balance Ability Good Balance Tests Gage Balance Test Gage Balance Test Score 53/56 Gage Impairment Rating 1 to 19% Impaired (Score 45-55 ) Gage Balance Assessment Evaluation Sitting to Standing Ability Independent w/out Hands Unsupported Stance Safely- 2 minutes Sitting Unsupported, Feet on Floor Safely- 2 minutes Standing to Sitting Ability Safely, Minimal Hand Use Transfer Ability Safely, Minimal Hand Use Unsupported Stance- Eyes Closed Safely, 10 seconds Unsupported Stance- Eyes Open Independent, 1 minute Reaching Forward Standing Safely, 5 inches Pick- Up Object From Floor Independent/Safe Look Behind Shoulder - Standing Shifts Weight Well Turning 360 Degrees Turns slowly, but safely Unsupported Stance, Alternating Feet on (I)- 8 Steps in 20 secs Stair Unsupported Tandem Stance Achieves Tandem Unilateral Leg Stance Lifts Leg/Holds 10 secs Total Score Gage Total Score (out of 56 points) 53 Gage Impairment Rating 1 to 19% Impaired (Score 45-55 ) Villalobos Fall Scale Copyright Permission Wilfredo COWART, Wilfredo RM, Chad SJ. Development of a scale to identify the fall- prone patient. Can J Aging 1989;8;366-7. Liz Villalobos (2009). Preventing patient falls. (2nd ed). [place]: Ruiz. PT-OP-E Functional Tests Start: 04/25/18 09:56 Freq: Status: Active Protocol: Document 04/22/18 09:00 DCW (Rec: 04/25/18 10:18 DCW [id number]) Functional Tests Dynamic Gait Index (DGI) Score 21/24 DGI Impairment Rating 1 to <20% Impaired (Score 20- 23) Functional Gait Assessment Score 25/30 Functional Gait Assessment Impairment 1 to <20% Impaired (Score 25- Rating 29) PT-OP-M Strength Start: 04/25/18 09:56 Freq: Status: Active Protocol: Document 04/22/18 09:00 DCW (Rec: 04/25/18 10:18 DCW [id number]) Trunk Strength Trunk Manual Muscle Testing Core Stabilization 4-/5 - Difficulty holding posterior pelvic tilt with single SLR for longer than 3-5 seconds Shoulder Strength Shoulder Manual Muscle Testing Right Flexion 4 Good Abduction (C5) 4 Good External Rotation 4 Good Internal Rotation 4 Good Left Flexion 4 Good Abduction (C5) 4 Good External Rotation 4 Good Internal Rotation 4 Good Elbow/Forearm Strength Elbow and Forearm Manual Muscle Testing Right Flexion (C6) 4+ Good+ Extension (C7) 4 Good Left Flexion (C6) 4+ Good+ Extension (C7) 4 Good Hip Strength Hip Manual Muscle Testing Right Flexion (L2) 4 Good Abduction 4+ Good+ Adduction 4+ Good+ External Rotation 4 Good Internal Rotation 4+ Good+ Left Flexion (L2) 4 Good Abduction 4+ Good+ Adduction 4+ Good+ External Rotation 4+ Good+ Internal Rotation 4+ Good+ Knee Strength Knee Manual Muscle Testing Right Flexion (S2) 4+ Good+ Extension (L3) 4+ Good+ Left Flexion (S2) 4+ Good+ Extension (L3) 4+ Good+ PT-OP-Q Treatments Start: 04/25/18 09:56 Freq: Status: Active Protocol: Document 04/26/18 11:15 DCW (Rec: 04/26/18 11:59 DCW [id number]) Cardio Equipment Bicycle (Upright) Duration (Minutes) 5 Resistance 6 Seat Position 4 Gym Equipment Shuttle Recovery Bilateral Heel Raises Resistance 75# Unilateral Squats Resistance 50# Shuttle Recovery Platform Stable Bilateral Squats Resistance 75# Shuttle Recovery Platform Stable Shuttle Balance Red Details Wide KELLY (EO/EC), Staggered Stance Therapeutic Exercises Other Exercises Resisted Forward/Backward Ambulation Other Exercise Name Resisted fwd/bkwd amb Resistance Yellow Equipment Used T-band Resisted Side-stepping Other Exercise Name Resisted lateral ambulation Resistance Yellow Equipment Used T-band Neuro Re-Education Treatment Balance Activities [place] with head turns Details Three-steps, bow with head turns Ambulation with head turns Details Vertical head turns PT-OP-T Assessment and Plan Start: 04/25/18 09:56 Freq: Status: Active Protocol: Document 04/26/18 11:15 DCW (Rec: 04/26/18 11:59 DCW [id number]) Physical Therapy Assessment Impairments Impairments Activity Tolerance Balance Strength Goals Three Impairment FGA Half-Way Goal (LTG) Pt to score 28/30 on the FGA LTG Duration 06/22/18 Two Impairment Core Strength Short Term Goal (STG) Pt to be able to hold a posterior pelvic tilt with both legs raised six inches for 10 seconds STG Duration 05/23/18 One Impairment Pt does not have an appropriate home exercise program Short Term Goal (STG) Pt to be independent and compliant with an appropriate HEP STG Duration 05/23/18 Assessment Summary Assessment Pt has good initial strength, but appears to fatigue quickly . Should continue to benefit from skilled PT focusing on strength and activity tolerance. Additionally, pt did complain of slight dizziness following her appointment. Physical Therapy Plan Frequency and Duration Frequency of Treatment 2x/Week Duration of Treatment 2 months Plan of Care Start Date 04/22/18 Plan of Care End Date 06/22/18 Therapeutic Interventions Therapeutic Interventions Aquatic Therapy Balance Training Home Exercise Program Manual Therapy Therapeutic Activities Therapeutic Exercises Next Visit Focus/Plan Next Note Type Treatment Note Next Visit Plan Abdominal strengthening, LE/UE strengthening, balance training
--- NOTE | 2018-04-29 11:33 | PT.OTN ---
Current Diagnoses Muscle weakness (generalized) (04/29/18) Physical Therapy Treatment Note PT-OP-A Visit Information Start: 04/25/18 09:56 Freq: Status: Active Protocol: Document 04/26/18 11:15 DCW (Rec: 04/26/18 11:59 DCW [id number]) Out-Patient Physical Therapy Visit Information Visit Information Visit Type Initial Evaluation Visit Start Time 11:15 Visit Stop Time 12:00 Total Visit Minutes 45 Visit Number 2 Number of SUPERVISOR TRUST ACCOUNTS Visits 0 Evaluation Information Evaluation Date 04/22/18 PT-OP-B Current Condition Start: 04/25/18 09:56 Freq: Status: Active Protocol: Document 04/22/18 09:00 DCW (Rec: 04/25/18 10:18 DCW [id number]) Current Condition History of Current Condition Onset Date Three months Current Complaints Generalized weakness and instability History of Current Condition Pt is a 73 year old female complaining of a three month history of generalized weakness and imbalance. Pt reports she is now unable to stand up by herself from a deep knee bend, and has had a few falls, one of which resulted in a wrist fracture. Pt reports she feels most of her weakness in in her upper leg and abdomen, and also notes that four years ago, she had colon surgery, and was cut all the way up my abdomen. Treatment Goals Patient/Caregiver Goals Pt's goal is to feel more stable when moving around, and to get her legs stronger. Prior Functional Status Baseline Function- ADL's Independent Baseline Function- Mobility Independent PT-OP-C Subjective Start: 04/25/18 09:56 Freq: Status: Active Protocol: Document 04/29/18 11:22 SA (Rec: 04/29/18 11:33 SA [id number]) OP-PT Subjective Patient Comments Patient Comments Pt states she had a little LE muscle soreness from last visit but otherwise feeling good. PT-OP-D Balance Start: 04/25/18 09:56 Freq: Status: Active Protocol: Document 04/22/18 09:00 DCW (Rec: 04/25/18 10:18 DCW [id number]) OP-PT Balance Assessment Sitting Balance Static Sitting Balance Ability Normal Dynamic Sitting Balance Ability Normal Standing Balance Static Standing Balance Ability Normal Dynamic Standing Balance Ability Good Balance Tests Gage Balance Test Gage Balance Test Score 53/56 Gage Impairment Rating 1 to 19% Impaired (Score 45-55 ) Gage Balance Assessment Evaluation Sitting to Standing Ability Independent w/out Hands Unsupported Stance Safely- 2 minutes Sitting Unsupported, Feet on Floor Safely- 2 minutes Standing to Sitting Ability Safely, Minimal Hand Use Transfer Ability Safely, Minimal Hand Use Unsupported Stance- Eyes Closed Safely, 10 seconds Unsupported Stance- Eyes Open Independent, 1 minute Reaching Forward Standing Safely, 5 inches Pick- Up Object From Floor Independent/Safe Look Behind Shoulder - Standing Shifts Weight Well Turning 360 Degrees Turns slowly, but safely Unsupported Stance, Alternating Feet on (I)- 8 Steps in 20 secs Stair Unsupported Tandem Stance Achieves Tandem Unilateral Leg Stance Lifts Leg/Holds 10 secs Total Score Gage Total Score (out of 56 points) 53 Gage Impairment Rating 1 to 19% Impaired (Score 45-55 ) Villalobos Fall Scale Copyright Permission Wilfredo COWART, Wilfredo RM, Chad SJ. Development of a scale to identify the fall- prone patient. Can J Aging 1989;8;366-7. Liz Villalobos (2009). Preventing patient falls. (2nd ed). [place]: Ruiz. PT-OP-E Functional Tests Start: 04/25/18 09:56 Freq: Status: Active Protocol: Document 04/22/18 09:00 DCW (Rec: 04/25/18 10:18 DCW [id number]) Functional Tests Dynamic Gait Index (DGI) Score 21/24 DGI Impairment Rating 1 to <20% Impaired (Score 20- 23) Functional Gait Assessment Score 25/30 Functional Gait Assessment Impairment 1 to <20% Impaired (Score 25- Rating 29) PT-OP-M Strength Start: 04/25/18 09:56 Freq: Status: Active Protocol: Document 04/22/18 09:00 DCW (Rec: 04/25/18 10:18 DCW [id number]) Trunk Strength Trunk Manual Muscle Testing Core Stabilization 4-/5 - Difficulty holding posterior pelvic tilt with single SLR for longer than 3-5 seconds Shoulder Strength Shoulder Manual Muscle Testing Right Flexion 4 Good Abduction (C5) 4 Good External Rotation 4 Good Internal Rotation 4 Good Left Flexion 4 Good Abduction (C5) 4 Good External Rotation 4 Good Internal Rotation 4 Good Elbow/Forearm Strength Elbow and Forearm Manual Muscle Testing Right Flexion (C6) 4+ Good+ Extension (C7) 4 Good Left Flexion (C6) 4+ Good+ Extension (C7) 4 Good Hip Strength Hip Manual Muscle Testing Right Flexion (L2) 4 Good Abduction 4+ Good+ Adduction 4+ Good+ External Rotation 4 Good Internal Rotation 4+ Good+ Left Flexion (L2) 4 Good Abduction 4+ Good+ Adduction 4+ Good+ External Rotation 4+ Good+ Internal Rotation 4+ Good+ Knee Strength Knee Manual Muscle Testing Right Flexion (S2) 4+ Good+ Extension (L3) 4+ Good+ Left Flexion (S2) 4+ Good+ Extension (L3) 4+ Good+ PT-OP-Q Treatments Start: 04/25/18 09:56 Freq: Status: Active Protocol: Document 04/29/18 11:22 SA (Rec: 04/29/18 11:33 SA [id number]) Cardio Equipment Recumbent Bicycle Duration (Minutes) 5 Resistance 6 Gym Equipment Shuttle Recovery Bilateral Heel Raises Resistance 75# Unilateral Squats Resistance 50# Shuttle Recovery Platform Stable Bilateral Squats Resistance 75# Shuttle Recovery Platform Stable Reps/Time Tandem stance squat Therapeutic Exercises Supine Exercises bridging Side bilateral Equipment Used with and without PT ball Reps/Minutes 20x each Comments well tolerated Sidelying Exercises clamshells Side bilateral Reps/Minutes 20x each Standing Exercises monster walk Resistance Red TB Equipment Used 4 lengths of bar lateral stepping Resistance Red TB Reps/Minutes 4 lengths of bar Neuro Re-Education Treatment Balance Activities Ambulation with head turns Details Vertical head turns PT-OP-T Assessment and Plan Start: 04/25/18 09:56 Freq: Status: Active Protocol: Document 04/29/18 11:22 (Rec: 04/29/18 11:33 [id number]) Physical Therapy Assessment Rehab Potential Rehabilitation Potential Excellent Assessment Summary Assessment Pt fatigues quickly, understands muscle soreness and is expecting it with strength/endurance progressions. HEP handout given for bridging and clamshells. Pt tolerated well. Physical Therapy Plan Frequency and Duration Frequency of Treatment 2x/Week
--- NOTE | 2018-05-03 10:39 | PT.OTN ---
Current Diagnoses Muscle weakness (generalized) (05/03/18) Physical Therapy Treatment Note PT-OP-A Visit Information Start: 04/25/18 09:56 Freq: Status: Active Protocol: Document 04/26/18 11:15 DCW (Rec: 04/26/18 11:59 DCW [id number]) Out-Patient Physical Therapy Visit Information Visit Information Visit Type Initial Evaluation Visit Start Time 11:15 Visit Stop Time 12:00 Total Visit Minutes 45 Visit Number 2 Number of MOBILITY DEVELOPER Visits 0 Evaluation Information Evaluation Date 04/22/18 PT-OP-B Current Condition Start: 04/25/18 09:56 Freq: Status: Active Protocol: Document 04/22/18 09:00 DCW (Rec: 04/25/18 10:18 DCW [id number]) Current Condition History of Current Condition Onset Date Three months Current Complaints Generalized weakness and instability History of Current Condition Pt is a 73 year old female complaining of a three month history of generalized weakness and imbalance. Pt reports she is now unable to stand up by herself from a deep knee bend, and has had a few falls, one of which resulted in a wrist fracture. Pt reports she feels most of her weakness in in her upper leg and abdomen, and also notes that four years ago, she had colon surgery, and was cut all the way up my abdomen. Treatment Goals Patient/Caregiver Goals Pt's goal is to feel more stable when moving around, and to get her legs stronger. Prior Functional Status Baseline Function- ADL's Independent Baseline Function- Mobility Independent PT-OP-C Subjective Start: 04/25/18 09:56 Freq: Status: Active Protocol: Document 05/03/18 10:26 SA (Rec: 05/03/18 10:38 SA [email or web address]) OP-PT Subjective Patient Comments Patient Comments I was able to do HEP every day except for one and tolerated it well. No new pain or soreness. Patient Reported Progress Improving PT-OP-D Balance Start: 04/25/18 09:56 Freq: Status: Active Protocol: Document 04/22/18 09:00 DCW (Rec: 04/25/18 10:18 DCW [id number]) OP-PT Balance Assessment Sitting Balance Static Sitting Balance Ability Normal Dynamic Sitting Balance Ability Normal Standing Balance Static Standing Balance Ability Normal Dynamic Standing Balance Ability Good Balance Tests Gage Balance Test Gage Balance Test Score 53/56 Gage Impairment Rating 1 to 19% Impaired (Score 45-55 ) Gage Balance Assessment Evaluation Sitting to Standing Ability Independent w/out Hands Unsupported Stance Safely- 2 minutes Sitting Unsupported, Feet on Floor Safely- 2 minutes Standing to Sitting Ability Safely, Minimal Hand Use Transfer Ability Safely, Minimal Hand Use Unsupported Stance- Eyes Closed Safely, 10 seconds Unsupported Stance- Eyes Open Independent, 1 minute Reaching Forward Standing Safely, 5 inches Pick- Up Object From Floor Independent/Safe Look Behind Shoulder - Standing Shifts Weight Well Turning 360 Degrees Turns slowly, but safely Unsupported Stance, Alternating Feet on (I)- 8 Steps in 20 secs Stair Unsupported Tandem Stance Achieves Tandem Unilateral Leg Stance Lifts Leg/Holds 10 secs Total Score Gage Total Score (out of 56 points) 53 Gage Impairment Rating 1 to 19% Impaired (Score 45-55 ) Wilfredo Fall Scale Copyright Permission Wilfredo COWART, Wilfredo RM, Chad SJ. Development of a scale to identify the fall- prone patient. Can J Aging 1989;8;366-7. Liz Villalobos (2009). Preventing patient falls. (2nd ed). [place]: Ruiz. PT-OP-E Functional Tests Start: 04/25/18 09:56 Freq: Status: Active Protocol: Document 04/22/18 09:00 DCW (Rec: 04/25/18 10:18 [facility] [id number]) Functional Tests Dynamic Gait Index (DGI) Score 21/24 DGI Impairment Rating 1 to <20% Impaired (Score 20- 23) Functional Gait Assessment Score 25/30 Functional Gait Assessment Impairment 1 to <20% Impaired (Score 25- Rating 29) PT-OP-M Strength Start: 04/25/18 09:56 Freq: Status: Active Protocol: Document 04/22/18 09:00 DCW (Rec: 04/25/18 10:18 DC [id number]) Trunk Strength Trunk Manual Muscle Testing Core Stabilization 4-/5 - Difficulty holding posterior pelvic tilt with single SLR for longer than 3-5 seconds Shoulder Strength Shoulder Manual Muscle Testing Right Flexion 4 Good Abduction (C5) 4 Good External Rotation 4 Good Internal Rotation 4 Good Left Flexion 4 Good Abduction (C5) 4 Good External Rotation 4 Good Internal Rotation 4 Good Elbow/Forearm Strength Elbow and Forearm Manual Muscle Testing Right Flexion (C6) 4+ Good+ Extension (C7) 4 Good Left Flexion (C6) 4+ Good+ Extension (C7) 4 Good Hip Strength Hip Manual Muscle Testing Right Flexion (L2) 4 Good Abduction 4+ Good+ Adduction 4+ Good+ External Rotation 4 Good Internal Rotation 4+ Good+ Left Flexion (L2) 4 Good Abduction 4+ Good+ Adduction 4+ Good+ External Rotation 4+ Good+ Internal Rotation 4+ Good+ Knee Strength Knee Manual Muscle Testing Right Flexion (S2) 4+ Good+ Extension (L3) 4+ Good+ Left Flexion (S2) 4+ Good+ Extension (L3) 4+ Good+ PT-OP-Q Treatments Start: 04/25/18 09:56 Freq: Status: Active Protocol: Document 05/03/18 10:26 SA (Rec: 05/03/18 10:38 SA [email or web address]) Cardio Equipment Recumbent Bicycle Duration (Minutes) 6 Resistance 6 Gym Equipment Shuttle Recovery Tandem squats on shuttle Resistance 75# Shuttle Recovery Platform Stable Bilateral Heel Raises Resistance 75# Unilateral Squats Resistance 50# Shuttle Recovery Platform Stable Bilateral Squats Resistance 75# Shuttle Recovery Platform Stable Reps/Time Tandem stance squat Therapeutic Exercises Supine Exercises trunk rotations with PT ball Side bilateral Equipment Used Red PT ball under LEs Reps/Minutes 20x bridging Side bilateral Equipment Used PT ball Reps/Minutes 20 PPT /c TrA - Alternating SLR Side bilateral Reps/Minutes 20 Sidelying Exercises clamshells Side bilateral Resistance 3# Reps/Minutes 20 Standing Exercises Scapular retraction with squat Side bilateral Resistance #2 theraband Reps/Minutes 10 monster walk Side bilateral Equipment Used Red thera band Reps/Minutes 4 lengths lateral stepping Side bilateral Resistance Red Thera band Reps/Minutes 4 reps PT-OP-T Assessment and Plan Start: 04/25/18 09:56 Freq: Status: Active Protocol: Document 05/03/18 10:26 SA (Rec: 05/03/18 10:38 [email or web address]) Physical Therapy Plan Next Visit Focus/Plan Next Visit Plan Pt to continue with HEP and walking on trails with . Added 2 new exercises today: Scap retraction/squat and supine trunk rotations with PT ball, assess tolerance next visit.
--- NOTE | 2018-05-06 09:59 | PT.OTN ---
Current Diagnoses Muscle weakness (generalized) (05/06/18) Physical Therapy Treatment Note PT-OP-A Visit Information Start: 04/25/18 09:56 Freq: Status: Active Protocol: Document 04/26/18 11:15 DCW (Rec: 04/26/18 11:59 DCW [id number]) Out-Patient Physical Therapy Visit Information Visit Information Visit Type Initial Evaluation Visit Start Time 11:15 Visit Stop Time 12:00 Total Visit Minutes 45 Visit Number 2 Number of FIRE POT OPERATOR Visits 0 Evaluation Information Evaluation Date 04/22/18 PT-OP-B Current Condition Start: 04/25/18 09:56 Freq: Status: Active Protocol: Document 04/22/18 09:00 DCW (Rec: 04/25/18 10:18 DCW [id number]) Current Condition History of Current Condition Onset Date Three months Current Complaints Generalized weakness and instability History of Current Condition Pt is a 73 year old female complaining of a three month history of generalized weakness and imbalance. Pt reports she is now unable to stand up by herself from a deep knee bend, and has had a few falls, one of which resulted in a wrist fracture. Pt reports she feels most of her weakness in in her upper leg and abdomen, and also notes that four years ago, she had colon surgery, and was cut all the way up my abdomen. Treatment Goals Patient/Caregiver Goals Pt's goal is to feel more stable when moving around, and to get her legs stronger. Prior Functional Status Baseline Function- ADL's Independent Baseline Function- Mobility Independent PT-OP-C Subjective Start: 04/25/18 09:56 Freq: Status: Active Protocol: Document 05/06/18 09:46 SA (Rec: 05/06/18 09:59 SA [email or web address]) OP-PT Subjective Patient Comments Patient Comments Pt with decreased fatigue when walking trails with her . States she is sleeping better and doing HEP daily. PT-OP-D Balance Start: 04/25/18 09:56 Freq: Status: Active Protocol: Document 04/22/18 09:00 DCW (Rec: 04/25/18 10:18 DCW [id number]) OP-PT Balance Assessment Sitting Balance Static Sitting Balance Ability Normal Dynamic Sitting Balance Ability Normal Standing Balance Static Standing Balance Ability Normal Dynamic Standing Balance Ability Good Balance Tests Gage Balance Test Gage Balance Test Score 53/56 Gage Impairment Rating 1 to 19% Impaired (Score 45-55 ) Gage Balance Assessment Evaluation Sitting to Standing Ability Independent w/out Hands Unsupported Stance Safely- 2 minutes Sitting Unsupported, Feet on Floor Safely- 2 minutes Standing to Sitting Ability Safely, Minimal Hand Use Transfer Ability Safely, Minimal Hand Use Unsupported Stance- Eyes Closed Safely, 10 seconds Unsupported Stance- Eyes Open Independent, 1 minute Reaching Forward Standing Safely, 5 inches Pick- Up Object From Floor Independent/Safe Look Behind Shoulder - Standing Shifts Weight Well Turning 360 Degrees Turns slowly, but safely Unsupported Stance, Alternating Feet on (I)- 8 Steps in 20 secs Stair Unsupported Tandem Stance Achieves Tandem Unilateral Leg Stance Lifts Leg/Holds 10 secs Total Score Gage Total Score (out of 56 points) 53 Gage Impairment Rating 1 to 19% Impaired (Score 45-55 ) Villalobos Fall Scale Copyright Permission Wilfredo COWART, Wilfredo RM, Chad SJ. Development of a scale to identify the fall- prone patient. Can J Aging 1989;8;366-7. Liz Villalobos (2009). Preventing patient falls. (2nd ed). [place]: Ruiz. PT-OP-E Functional Tests Start: 04/25/18 09:56 Freq: Status: Active Protocol: Document 04/22/18 09:00 DCW (Rec: 04/25/18 10:18 DCW [id number]) Functional Tests Dynamic Gait Index (DGI) Score 21/24 DGI Impairment Rating 1 to <20% Impaired (Score 20- 23) Functional Gait Assessment Score 25/30 Functional Gait Assessment Impairment 1 to <20% Impaired (Score 25- Rating 29) PT-OP-M Strength Start: 04/25/18 09:56 Freq: Status: Active Protocol: Document 04/22/18 09:00 DCW (Rec: 04/25/18 10:18 DCW [id number]) Trunk Strength Trunk Manual Muscle Testing Core Stabilization 4-/5 - Difficulty holding posterior pelvic tilt with single SLR for longer than 3-5 seconds Shoulder Strength Shoulder Manual Muscle Testing Right Flexion 4 Good Abduction (C5) 4 Good External Rotation 4 Good Internal Rotation 4 Good Left Flexion 4 Good Abduction (C5) 4 Good External Rotation 4 Good Internal Rotation 4 Good Elbow/Forearm Strength Elbow and Forearm Manual Muscle Testing Right Flexion (C6) 4+ Good+ Extension (C7) 4 Good Left Flexion (C6) 4+ Good+ Extension (C7) 4 Good Hip Strength Hip Manual Muscle Testing Right Flexion (L2) 4 Good Abduction 4+ Good+ Adduction 4+ Good+ External Rotation 4 Good Internal Rotation 4+ Good+ Left Flexion (L2) 4 Good Abduction 4+ Good+ Adduction 4+ Good+ External Rotation 4+ Good+ Internal Rotation 4+ Good+ Knee Strength Knee Manual Muscle Testing Right Flexion (S2) 4+ Good+ Extension (L3) 4+ Good+ Left Flexion (S2) 4+ Good+ Extension (L3) 4+ Good+ PT-OP-Q Treatments Start: 04/25/18 09:56 Freq: Status: Active Protocol: Document 05/06/18 09:46 (Rec: 05/06/18 09:59 [email or web address]) Cardio Equipment Recumbent Bicycle Duration (Minutes) 7 Resistance 6 Seat Position 5 Gym Equipment Shuttle Recovery Tandem squats on shuttle Resistance 75# Shuttle Recovery Platform Stable Bilateral Heel Raises Resistance 75# Unilateral Squats Resistance 75# Shuttle Recovery Platform Stable Bilateral Squats Resistance 75# Shuttle Recovery Platform Stable Reps/Time Tandem stance squat Shuttle Balance Red Details Wide KELLY (EO/EC), Staggered Stance Therapeutic Exercises Supine Exercises trunk rotations with PT ball Side bilateral Equipment Used Red PT ball under LEs Reps/Minutes 20x bridging Side bilateral Equipment Used PT ball Reps/Minutes 20 PPT /c TrA - Alternating SLR Side bilateral Reps/Minutes 20 PPT /c TrA activation Supine Exercise Name Posterior Pelvic Tilt with Trans Ab contraction Reps/Minutes 5 second hold Sidelying Exercises hip ABD straight leg Side bilateral Resistance 0 Reps/Minutes 10 clamshells Side bilateral Resistance 3# Reps/Minutes 20 Standing Exercises lunge walk Side bilateral Equipment Used at bar Reps/Minutes 4 lengths Scapular retraction with squat Side bilateral Resistance #2 theraband Reps/Minutes 20 monster walk Side bilateral Equipment Used Red thera band Reps/Minutes 4 lengths lateral stepping Side bilateral Resistance Red Thera band Reps/Minutes 4 reps PT-OP-T Assessment and Plan Start: 04/25/18 09:56 Freq: Status: Active Protocol: Document 05/06/18 09:46 (Rec: 05/06/18 09:59 [email or web address]) Physical Therapy Assessment Assessment Summary Assessment Pt presents with improving endurance and no c/o pain, improving sleep with new medication. Physical Therapy Plan Frequency and Duration Frequency of Treatment 2x/Week Next Visit Focus/Plan Next Visit Plan Assess patient's response to lunge walks and progress core strengthening program.
--- NOTE | 2018-05-10 10:56 | PT.OTN ---
Current Diagnoses Muscle weakness (generalized) (05/10/18) Physical Therapy Treatment Note PT-OP-A Visit Information Start: 04/25/18 09:56 Freq: Status: Active Protocol: Document 04/26/18 11:15 DCW (Rec: 04/26/18 11:59 DCW [id number]) Out-Patient Physical Therapy Visit Information Visit Information Visit Type Initial Evaluation Visit Start Time 11:15 Visit Stop Time 12:00 Total Visit Minutes 45 Visit Number 2 Number of SCHOOL ADJUSTMENT COUNSELOR Visits 0 Evaluation Information Evaluation Date 04/22/18 PT-OP-B Current Condition Start: 04/25/18 09:56 Freq: Status: Active Protocol: Document 04/22/18 09:00 DCW (Rec: 04/25/18 10:18 DCW [id number]) Current Condition History of Current Condition Onset Date Three months Current Complaints Generalized weakness and instability History of Current Condition Pt is a 73 year old female complaining of a three month history of generalized weakness and imbalance. Pt reports she is now unable to stand up by herself from a deep knee bend, and has had a few falls, one of which resulted in a wrist fracture. Pt reports she feels most of her weakness in in her upper leg and abdomen, and also notes that four years ago, she had colon surgery, and was cut all the way up my abdomen. Treatment Goals Patient/Caregiver Goals Pt's goal is to feel more stable when moving around, and to get her legs stronger. Prior Functional Status Baseline Function- ADL's Independent Baseline Function- Mobility Independent PT-OP-C Subjective Start: 04/25/18 09:56 Freq: Status: Active Protocol: Document 05/10/18 10:46 SA (Rec: 05/10/18 10:56 SA [email or web address]) OP-PT Subjective Patient Comments Patient Comments Pt skipped on day of HEP, continues to progress with strength and activity tolerance. Patient Reported Progress Improving PT-OP-D Balance Start: 04/25/18 09:56 Freq: Status: Active Protocol: Document 04/22/18 09:00 DCW (Rec: 04/25/18 10:18 DCW [id number]) OP-PT Balance Assessment Sitting Balance Static Sitting Balance Ability Normal Dynamic Sitting Balance Ability Normal Standing Balance Static Standing Balance Ability Normal Dynamic Standing Balance Ability Good Balance Tests Gage Balance Test Gage Balance Test Score 53/56 Gage Impairment Rating 1 to 19% Impaired (Score 45-55 ) Gage Balance Assessment Evaluation Sitting to Standing Ability Independent w/out Hands Unsupported Stance Safely- 2 minutes Sitting Unsupported, Feet on Floor Safely- 2 minutes Standing to Sitting Ability Safely, Minimal Hand Use Transfer Ability Safely, Minimal Hand Use Unsupported Stance- Eyes Closed Safely, 10 seconds Unsupported Stance- Eyes Open Independent, 1 minute Reaching Forward Standing Safely, 5 inches Pick- Up Object From Floor Independent/Safe Look Behind Shoulder - Standing Shifts Weight Well Turning 360 Degrees Turns slowly, but safely Unsupported Stance, Alternating Feet on (I)- 8 Steps in 20 secs Stair Unsupported Tandem Stance Achieves Tandem Unilateral Leg Stance Lifts Leg/Holds 10 secs Total Score Gage Total Score (out of 56 points) 53 Gage Impairment Rating 1 to 19% Impaired (Score 45-55 ) Villalobos Fall Scale Copyright Permission Wilfredo COWART, Wilfredo RM, Chad SJ. Development of a scale to identify the fall- prone patient. Can J Aging 1989;8;366-7. Liz Villalobos (2009). Preventing patient falls. (2nd ed). [place]: Ruiz. PT-OP-E Functional Tests Start: 04/25/18 09:56 Freq: Status: Active Protocol: Document 04/22/18 09:00 DCW (Rec: 04/25/18 10:18 DCW [id number]) Functional Tests Dynamic Gait Index (DGI) Score 21/24 DGI Impairment Rating 1 to <20% Impaired (Score 20- 23) Functional Gait Assessment Score 25/30 Functional Gait Assessment Impairment 1 to <20% Impaired (Score 25- Rating 29) PT-OP-M Strength Start: 04/25/18 09:56 Freq: Status: Active Protocol: Document 04/22/18 09:00 DCW (Rec: 04/25/18 10:18 DCW [id number]) Trunk Strength Trunk Manual Muscle Testing Core Stabilization 4-/5 - Difficulty holding posterior pelvic tilt with single SLR for longer than 3-5 seconds Shoulder Strength Shoulder Manual Muscle Testing Right Flexion 4 Good Abduction (C5) 4 Good External Rotation 4 Good Internal Rotation 4 Good Left Flexion 4 Good Abduction (C5) 4 Good External Rotation 4 Good Internal Rotation 4 Good Elbow/Forearm Strength Elbow and Forearm Manual Muscle Testing Right Flexion (C6) 4+ Good+ Extension (C7) 4 Good Left Flexion (C6) 4+ Good+ Extension (C7) 4 Good Hip Strength Hip Manual Muscle Testing Right Flexion (L2) 4 Good Abduction 4+ Good+ Adduction 4+ Good+ External Rotation 4 Good Internal Rotation 4+ Good+ Left Flexion (L2) 4 Good Abduction 4+ Good+ Adduction 4+ Good+ External Rotation 4+ Good+ Internal Rotation 4+ Good+ Knee Strength Knee Manual Muscle Testing Right Flexion (S2) 4+ Good+ Extension (L3) 4+ Good+ Left Flexion (S2) 4+ Good+ Extension (L3) 4+ Good+ PT-OP-Q Treatments Start: 04/25/18 09:56 Freq: Status: Active Protocol: Document 05/10/18 10:46 SA (Rec: 05/10/18 10:56 SA [email or web address]) Cardio Equipment Recumbent Bicycle Duration (Minutes) 7 Resistance 6 Seat Position 5 Therapeutic Exercises Supine Exercises trunk rotations with PT ball Side bilateral Equipment Used Red PT ball under LEs Reps/Minutes 20x bridging Side bilateral Equipment Used PT ball Reps/Minutes 20 PPT /c TrA - Alternating SLR Reps/Minutes 20 Comments 5 second hold Sidelying Exercises hip ABD straight leg Side bilateral Resistance 2# Reps/Minutes 10 clamshells Side bilateral Resistance 4# Reps/Minutes 20 Standing Exercises lunge walk Side bilateral Equipment Used at bar Reps/Minutes 4 lengths Scapular retraction with squat Side bilateral Resistance #2 theraband Reps/Minutes 20 monster walk Side bilateral Equipment Used Red thera band Reps/Minutes 6 lengths lateral stepping Side bilateral Resistance Red Thera band Reps/Minutes 6 reps Neuro Re-Education Treatment Balance Activities Obstacle course with stepping stones Details Stepping onto uneven objects Comments Focus on maintaining gait speed with obstacle course training, LOB x3 with self recovery. Ambulation with head turns Details Verticle head turns PT-OP-T Assessment and Plan Start: 04/25/18 09:56 Freq: Status: Active Protocol: Document 05/10/18 10:46 SA (Rec: 05/10/18 10:56 SA [email or web address]) Physical Therapy Assessment Progress Towards Goals Progress Towards Goals Progressing Toward Goals Assessment Summary Assessment Continue to progress balance training. Added lunge walk with 2-3# dumb bells to HEP. Pt consistent with HEP and making strength gains.
--- NOTE | 2018-05-13 09:44 | PT.OTN ---
Current Diagnoses Muscle weakness (generalized) (05/13/18) Physical Therapy Treatment Note PT-OP-A Visit Information Start: 04/25/18 09:56 Freq: Status: Active Protocol: Document 05/13/18 09:00 DCW (Rec: 05/13/18 09:44 DCW [id number]) Out-Patient Physical Therapy Visit Information Visit Information Visit Type Treatment Note Visit Start Time 09:00 Visit Stop Time 09:45 Total Visit Minutes 45 Visit Number 7 Number of FOOD SAFETY SCIENTIST Visits 0 Evaluation Information Evaluation Date 04/22/18 PT-OP-B Current Condition Start: 04/25/18 09:56 Freq: Status: Active Protocol: Document 04/22/18 09:00 DCW (Rec: 04/25/18 10:18 DCW [id number]) Current Condition History of Current Condition Onset Date Three months Current Complaints Generalized weakness and instability History of Current Condition Pt is a 73 year old female complaining of a three month history of generalized weakness and imbalance. Pt reports she is now unable to stand up by herself from a deep knee bend, and has had a few falls, one of which resulted in a wrist fracture. Pt reports she feels most of her weakness in in her upper leg and abdomen, and also notes that four years ago, she had colon surgery, and was cut all the way up my abdomen. Treatment Goals Patient/Caregiver Goals Pt's goal is to feel more stable when moving around, and to get her legs stronger. Prior Functional Status Baseline Function- ADL's Independent Baseline Function- Mobility Independent PT-OP-C Subjective Start: 04/25/18 09:56 Freq: Status: Active Protocol: Document 05/13/18 09:00 DCW (Rec: 05/13/18 09:44 DCW [id number]) OP-PT Subjective Patient Comments Patient Comments Pt feels like she has been improving since beginning therapy. PT-OP-D Balance Start: 04/25/18 09:56 Freq: Status: Active Protocol: Document 04/22/18 09:00 DCW (Rec: 04/25/18 10:18 DCW [id number]) OP-PT Balance Assessment Sitting Balance Static Sitting Balance Ability Normal Dynamic Sitting Balance Ability Normal Standing Balance Static Standing Balance Ability Normal Dynamic Standing Balance Ability Good Balance Tests Gage Balance Test Gage Balance Test Score 53/56 Gage Impairment Rating 1 to 19% Impaired (Score 45-55 ) Gage Balance Assessment Evaluation Sitting to Standing Ability Independent w/out Hands Unsupported Stance Safely- 2 minutes Sitting Unsupported, Feet on Floor Safely- 2 minutes Standing to Sitting Ability Safely, Minimal Hand Use Transfer Ability Safely, Minimal Hand Use Unsupported Stance- Eyes Closed Safely, 10 seconds Unsupported Stance- Eyes Open Independent, 1 minute Reaching Forward Standing Safely, 5 inches Pick- Up Object From Floor Independent/Safe Look Behind Shoulder - Standing Shifts Weight Well Turning 360 Degrees Turns slowly, but safely Unsupported Stance, Alternating Feet on (I)- 8 Steps in 20 secs Stair Unsupported Tandem Stance Achieves Tandem Unilateral Leg Stance Lifts Leg/Holds 10 secs Total Score Gage Total Score (out of 56 points) 53 Gage Impairment Rating 1 to 19% Impaired (Score 45-55 ) Wilfredo Fall Scale Copyright Permission Wilfredo COWART, Wilfredo RM, Chad SJ. Development of a scale to identify the fall- prone patient. Can J Aging 1989;8;366-7. Liz Villalobos (2009). Preventing patient falls. (2nd ed). [place]: Ruiz. PT-OP-E Functional Tests Start: 04/25/18 09:56 Freq: Status: Active Protocol: Document 04/22/18 09:00 DCW (Rec: 04/25/18 10:18 DCW [id number]) Functional Tests Dynamic Gait Index (DGI) Score 21/24 DGI Impairment Rating 1 to <20% Impaired (Score 20- 23) Functional Gait Assessment Score 25/30 Functional Gait Assessment Impairment 1 to <20% Impaired (Score 25- Rating 29) PT-OP-M Strength Start: 04/25/18 09:56 Freq: Status: Active Protocol: Document 04/22/18 09:00 DCW (Rec: 04/25/18 10:18 DCW [id number]) Trunk Strength Trunk Manual Muscle Testing Core Stabilization 4-/5 - Difficulty holding posterior pelvic tilt with single SLR for longer than 3-5 seconds Shoulder Strength Shoulder Manual Muscle Testing Right Flexion 4 Good Abduction (C5) 4 Good External Rotation 4 Good Internal Rotation 4 Good Left Flexion 4 Good Abduction (C5) 4 Good External Rotation 4 Good Internal Rotation 4 Good Elbow/Forearm Strength Elbow and Forearm Manual Muscle Testing Right Flexion (C6) 4+ Good+ Extension (C7) 4 Good Left Flexion (C6) 4+ Good+ Extension (C7) 4 Good Hip Strength Hip Manual Muscle Testing Right Flexion (L2) 4 Good Abduction 4+ Good+ Adduction 4+ Good+ External Rotation 4 Good Internal Rotation 4+ Good+ Left Flexion (L2) 4 Good Abduction 4+ Good+ Adduction 4+ Good+ External Rotation 4+ Good+ Internal Rotation 4+ Good+ Knee Strength Knee Manual Muscle Testing Right Flexion (S2) 4+ Good+ Extension (L3) 4+ Good+ Left Flexion (S2) 4+ Good+ Extension (L3) 4+ Good+ PT-OP-Q Treatments Start: 04/25/18 09:56 Freq: Status: Active Protocol: Document 05/13/18 09:00 DCW (Rec: 05/13/18 09:44 DCW [id number]) Cardio Equipment Recumbent Bicycle Duration (Minutes) 7 Resistance 6 Seat Position 4 Gym Equipment Shuttle Recovery Tandem squats on shuttle Resistance 75# Shuttle Recovery Platform Stable Unilateral Squats Resistance 75# Shuttle Recovery Platform Stable Bilateral Squats Resistance 100# Shuttle Recovery Platform Stable Shuttle Balance Red Details Wide KELLY (EO/EC), Staggered Stance Therapeutic Ball Reverse Leg Press Exercise Details Hip/Knee flexion /c feet on T- ball vs T-band resistance Ball Size/Color Red - 55 cm Lv 2 T-band Body Position Supine Therapeutic Exercises Supine Exercises trunk rotations with PT ball Side bilateral Equipment Used Red PT ball under LEs Reps/Minutes 20x bridging Side bilateral Equipment Used PT ball Reps/Minutes 20 Standing Exercises Gastroc stretch Standing Exercise Name Gastroc stretch Equipment Used MARRY Neuro Re-Education Treatment Balance Activities Obstacle course with stepping stones Details Stepping onto uneven objects Comments Focus on maintaining gait speed with obstacle course training, LOB x3 with self recovery. PT-OP-T Assessment and Plan Start: 04/25/18 09:56 Freq: Status: Active Protocol: Document 05/13/18 09:00 DCW (Rec: 05/13/18 09:44 DCW [id number]) Physical Therapy Assessment Impairments Impairments Activity Tolerance Balance Strength Goals Three Impairment FGA Information Assurance Engineer Goal (LTG) Pt to score 28/30 on the FGA LTG Duration 06/22/18 Two Impairment Core Strength Short Term Goal (STG) Pt to be able to hold a posterior pelvic tilt with both legs raised six inches for 10 seconds STG Duration 05/23/18 One Impairment Pt does not have an appropriate home exercise program Short Term Goal (STG) Pt to be independent and compliant with an appropriate HEP STG Duration 05/23/18 Physical Therapy Plan Frequency and Duration Frequency of Treatment 2x/Week Therapeutic Interventions Therapeutic Interventions Aquatic Therapy Balance Training Home Exercise Program Manual Therapy Therapeutic Activities Therapeutic Exercises Next Visit Focus/Plan Next Note Type Treatment Note Next Visit Plan Begin transition to independent HEP
--- NOTE | 2018-05-16 11:56 | PT.OTN ---
Current Diagnoses Muscle weakness (generalized) (05/16/18) Physical Therapy Treatment Note PT-OP-A Visit Information Start: 04/25/18 09:56 Freq: Status: Active Protocol: Document 05/16/18 11:15 DCW (Rec: 05/16/18 11:56 DCW [id number]) Out-Patient Physical Therapy Visit Information Visit Information Visit Type Treatment Note Visit Start Time 11:15 Visit Stop Time 12:00 Total Visit Minutes 45 Visit Number 8 Number of PRODUCT GRADER Visits 0 Evaluation Information Evaluation Date 04/22/18 PT-OP-B Current Condition Start: 04/25/18 09:56 Freq: Status: Active Protocol: Document 04/22/18 09:00 DCW (Rec: 04/25/18 10:18 DCW [id number]) Current Condition History of Current Condition Onset Date Three months Current Complaints Generalized weakness and instability History of Current Condition Pt is a 73 year old female complaining of a three month history of generalized weakness and imbalance. Pt reports she is now unable to stand up by herself from a deep knee bend, and has had a few falls, one of which resulted in a wrist fracture. Pt reports she feels most of her weakness in in her upper leg and abdomen, and also notes that four years ago, she had colon surgery, and was cut all the way up my abdomen. Treatment Goals Patient/Caregiver Goals Pt's goal is to feel more stable when moving around, and to get her legs stronger. Prior Functional Status Baseline Function- ADL's Independent Baseline Function- Mobility Independent PT-OP-C Subjective Start: 04/25/18 09:56 Freq: Status: Active Protocol: Document 05/16/18 11:15 DCW (Rec: 05/16/18 11:56 DCW [id number]) OP-PT Subjective Patient Comments Patient Comments Pt doing well currently, feels like her stability and strength has improved. PT-OP-D Balance Start: 04/25/18 09:56 Freq: Status: Active Protocol: Document 04/22/18 09:00 DCW (Rec: 04/25/18 10:18 DCW [id number]) OP-PT Balance Assessment Sitting Balance Static Sitting Balance Ability Normal Dynamic Sitting Balance Ability Normal Standing Balance Static Standing Balance Ability Normal Dynamic Standing Balance Ability Good Balance Tests Gage Balance Test Gage Balance Test Score 53/56 Gage Impairment Rating 1 to 19% Impaired (Score 45-55 ) Gage Balance Assessment Evaluation Sitting to Standing Ability Independent w/out Hands Unsupported Stance Safely- 2 minutes Sitting Unsupported, Feet on Floor Safely- 2 minutes Standing to Sitting Ability Safely, Minimal Hand Use Transfer Ability Safely, Minimal Hand Use Unsupported Stance- Eyes Closed Safely, 10 seconds Unsupported Stance- Eyes Open Independent, 1 minute Reaching Forward Standing Safely, 5 inches Pick- Up Object From Floor Independent/Safe Look Behind Shoulder - Standing Shifts Weight Well Turning 360 Degrees Turns slowly, but safely Unsupported Stance, Alternating Feet on (I)- 8 Steps in 20 secs Stair Unsupported Tandem Stance Achieves Tandem Unilateral Leg Stance Lifts Leg/Holds 10 secs Total Score Gage Total Score (out of 56 points) 53 Gage Impairment Rating 1 to 19% Impaired (Score 45-55 ) Villalobos Fall Scale Copyright Permission Wilfredo COWART, Wilfredo RM, Chad SJ. Development of a scale to identify the fall- prone patient. Can J Aging 1989;8;366-7. Liz Villalobos (2009). Preventing patient falls. (2nd ed). [place]: Ruiz. PT-OP-E Functional Tests Start: 04/25/18 09:56 Freq: Status: Active Protocol: Document 04/22/18 09:00 DCW (Rec: 04/25/18 10:18 DCW [id number]) Functional Tests Dynamic Gait Index (DGI) Score 21/24 DGI Impairment Rating 1 to <20% Impaired (Score 20- 23) Functional Gait Assessment Score 25/30 Functional Gait Assessment Impairment 1 to <20% Impaired (Score 25- Rating 29) PT-OP-M Strength Start: 04/25/18 09:56 Freq: Status: Active Protocol: Document 04/22/18 09:00 DCW (Rec: 04/25/18 10:18 DCW [id number]) Trunk Strength Trunk Manual Muscle Testing Core Stabilization 4-/5 - Difficulty holding posterior pelvic tilt with single SLR for longer than 3-5 seconds Shoulder Strength Shoulder Manual Muscle Testing Right Flexion 4 Good Abduction (C5) 4 Good External Rotation 4 Good Internal Rotation 4 Good Left Flexion 4 Good Abduction (C5) 4 Good External Rotation 4 Good Internal Rotation 4 Good Elbow/Forearm Strength Elbow and Forearm Manual Muscle Testing Right Flexion (C6) 4+ Good+ Extension (C7) 4 Good Left Flexion (C6) 4+ Good+ Extension (C7) 4 Good Hip Strength Hip Manual Muscle Testing Right Flexion (L2) 4 Good Abduction 4+ Good+ Adduction 4+ Good+ External Rotation 4 Good Internal Rotation 4+ Good+ Left Flexion (L2) 4 Good Abduction 4+ Good+ Adduction 4+ Good+ External Rotation 4+ Good+ Internal Rotation 4+ Good+ Knee Strength Knee Manual Muscle Testing Right Flexion (S2) 4+ Good+ Extension (L3) 4+ Good+ Left Flexion (S2) 4+ Good+ Extension (L3) 4+ Good+ PT-OP-Q Treatments Start: 04/25/18 09:56 Freq: Status: Active Protocol: Document 05/16/18 11:15 DCW (Rec: 05/16/18 11:56 DCW [id number]) Cardio Equipment Recumbent Bicycle Duration (Minutes) 7 Resistance 6 Seat Position 4 Gym Equipment Shuttle Recovery Tandem squats on shuttle Resistance 100# Shuttle Recovery Platform Stable Unilateral Squats Resistance 62# Shuttle Recovery Platform Stable Bilateral Squats Resistance 100# Shuttle Recovery Platform Stable Shuttle Balance Red Details Wide KELLY (EO/EC), Staggered Stance, Lateral weight shift Therapeutic Ball Seated Trunk Rotation Exercise Details Trunk rotation vs T-band resistance Ball Size/Color Green - 65 cm Lv 2 T-band Body Position Sitting Reverse Leg Press Exercise Details Hip/Knee flexion /c feet on T- ball vs T-band resistance Ball Size/Color Red - 55 cm Lv 2 T-band Body Position Supine Therapeutic Exercises Supine Exercises trunk rotations with PT ball Side bilateral Equipment Used Red PT ball under LEs Reps/Minutes 20x Standing Exercises Gastroc stretch Standing Exercise Name Gastroc stretch Equipment Used MARRY PT-OP-T Assessment and Plan Start: 04/25/18 09:56 Freq: Status: Active Protocol: Document 05/16/18 11:15 DCW (Rec: 05/16/18 11:56 DCW [id number]) Physical Therapy Assessment Impairments Impairments Activity Tolerance Balance Strength Goals Three Impairment FGA Ethylene Plant Operator Goal (LTG) Pt to score 28/30 on the FGA LTG Duration 06/22/18 Two Impairment Core Strength Short Term Goal (STG) Pt to be able to hold a posterior pelvic tilt with both legs raised six inches for 10 seconds STG Duration 05/23/18 One Impairment Pt does not have an appropriate home exercise program Short Term Goal (STG) Pt to be independent and compliant with an appropriate HEP STG Duration 05/23/18 Assessment Summary Assessment Pt progressing well, will reassess FGA and core strength next visit with plan to discharge. Physical Therapy Plan Frequency and Duration Frequency of Treatment 2x/Week Duration of Treatment 2 months Plan of Care Start Date 04/22/18 Plan of Care End Date 06/22/18 Therapeutic Interventions Therapeutic Interventions Aquatic Therapy Balance Training Home Exercise Program Manual Therapy Therapeutic Activities Therapeutic Exercises Next Visit Focus/Plan Next Note Type Treatment Note Next Visit Plan Retesting for potential discharge
--- NOTE | 2018-05-19 11:48 | PT.OTN ---
Current Diagnoses Muscle weakness (generalized) (05/19/18) Physical Therapy Treatment Note PT-OP-A Visit Information Start: 04/25/18 09:56 Freq: Status: Active Protocol: Document 05/19/18 11:15 DCW (Rec: 05/19/18 11:48 DCW [id number]) Out-Patient Physical Therapy Visit Information Visit Information Visit Type Discharge Summary Visit Start Time 11:15 Visit Stop Time 11:47 Total Visit Minutes 32 Visit Number [address]OR Visits 0 Evaluation Information Evaluation Date 04/22/18 PT-OP-B Current Condition Start: 04/25/18 09:56 Freq: Status: Active Protocol: Document 04/22/18 09:00 DCW (Rec: 04/25/18 10:18 DCW [id number]) Current Condition History of Current Condition Onset Date Three months Current Complaints Generalized weakness and instability History of Current Condition Pt is a 73 year old female complaining of a three month history of generalized weakness and imbalance. Pt reports she is now unable to stand up by herself from a deep knee bend, and has had a few falls, one of which resulted in a wrist fracture. Pt reports she feels most of her weakness in in her upper leg and abdomen, and also notes that four years ago, she had colon surgery, and was cut all the way up my abdomen. Treatment Goals Patient/Caregiver Goals Pt's goal is to feel more stable when moving around, and to get her legs stronger. Prior Functional Status Baseline Function- ADL's Independent Baseline Function- Mobility Independent PT-OP-C Subjective Start: 04/25/18 09:56 Freq: Status: Active Protocol: Document 05/19/18 11:15 DCW (Rec: 05/19/18 11:48 DCW [id number]) OP-PT Subjective Patient Comments Patient Comments Both pt and her are very happy with her current level of function, and her progress since beginning therapy. Report they [place], stepping over driftwood logs, and looking up searching for eagles, and she is no longer having any difficulty. PT-OP-D Balance Start: 04/25/18 09:56 Freq: Status: Active Protocol: Document 04/22/18 09:00 DCW (Rec: 04/25/18 10:18 DCW [id number]) OP-PT Balance Assessment Sitting Balance Static Sitting Balance Ability Normal Dynamic Sitting Balance Ability Normal Standing Balance Static Standing Balance Ability Normal Dynamic Standing Balance Ability Good Balance Tests Gage Balance Test Gage Balance Test Score 53/56 Gage Impairment Rating 1 to 19% Impaired (Score 45-55 ) Gage Balance Assessment Evaluation Sitting to Standing Ability Independent w/out Hands Unsupported Stance Safely- 2 minutes Sitting Unsupported, Feet on Floor Safely- 2 minutes Standing to Sitting Ability Safely, Minimal Hand Use Transfer Ability Safely, Minimal Hand Use Unsupported Stance- Eyes Closed Safely, 10 seconds Unsupported Stance- Eyes Open Independent, 1 minute Reaching Forward Standing Safely, 5 inches Pick- Up Object From Floor Independent/Safe Look Behind Shoulder - Standing Shifts Weight Well Turning 360 Degrees Turns slowly, but safely Unsupported Stance, Alternating Feet on (I)- 8 Steps in 20 secs Stair Unsupported Tandem Stance Achieves Tandem Unilateral Leg Stance Lifts Leg/Holds 10 secs Total Score Gage Total Score (out of 56 points) 53 Gage Impairment Rating 1 to 19% Impaired (Score 45-55 ) Wilfredo Fall Scale Copyright Permission Wilfredo COWART, Wilfredo RM, Chad SJ. Development of a scale to identify the fall- prone patient. Can J Aging 1989;8;366-7. Liz Villalobos (2009). Preventing patient falls. (2nd ed). [place]: Ruiz. PT-OP-E Functional Tests Start: 04/25/18 09:56 Freq: Status: Active Protocol: Document 05/19/18 11:15 DCW (Rec: 05/19/18 11:41 DCW [id number]) Functional Tests Functional Gait Assessment Score 29/30 Functional Gait Assessment Impairment 1 to <20% Impaired (Score 25- Rating 29) PT-OP-M Strength Start: 04/25/18 09:56 Freq: Status: Active Protocol: Document 05/19/18 11:15 DCW (Rec: 05/19/18 11:41 DCW [id number]) Trunk Strength Trunk Manual Muscle Testing Core Stabilization 4+/5 - Holds posterior pelvic tilt with single SLR for 20 seconds, double SLR for 8 seconds PT-OP-Q Treatments Start: 04/25/18 09:56 Freq: Status: Active Protocol: Document 05/19/18 11:15 DCW (Rec: 05/19/18 11:48 DCW [id number]) Neuro Re-Education Treatment Other Activities Balance Testing Details DGI/FGA, core testing PT-OP-T Assessment and Plan Start: 04/25/18 09:56 Freq: Status: Active Protocol: Document 05/19/18 11:15 DCW (Rec: 05/19/18 11:48 DCW [id number]) Physical Therapy Assessment Impairments Impairments Activity Tolerance Balance Strength Goals Three Impairment FGA Grants Administrator Goal (LTG) Pt to score 28/30 on the FGA LTG Duration Met Two Impairment Core Strength Short Term Goal (STG) Pt to be able to hold a posterior pelvic tilt with both legs raised six inches for 10 seconds STG Duration 05/23/18 - Nearly met - 8 seconds One Impairment Pt does not have an appropriate home exercise program Short Term Goal (STG) Pt to be independent and compliant with an appropriate HEP STG Duration Met Progress Towards Goals Progress Towards Goals Goals Met Assessment Summary Assessment Pt doing very well, scored 29/ 30 on FGA, no further complaints of imbalance or weakness. Pt compliant with HEP, and agreeable to discharge at this time. Physical Therapy Plan Frequency and Duration Frequency of Treatment 2x/Week Duration of Treatment 2 months Plan of Care Start Date 04/22/18 Plan of Care End Date 06/22/18 Therapeutic Interventions Therapeutic Interventions Aquatic Therapy Balance Training Home Exercise Program Manual Therapy Therapeutic Activities Therapeutic Exercises Discharge Physical Therapy Discharge Reasons Goals Met Next Visit Focus/Plan Next Note Type Discharge Summary
== END 2018-07-06 10:10 ==
LOC: PHYS 11:15
PROVIDERS: PCP Internal Medicine; Visit Provider Internal Medicine
DX: M62.81 Muscle weakness (generalized) (principal)
CPT/HCPCS: 97110; 97112; 97161

== ENCOUNTER → 2018-12-01 08:08 | Outpatient (CLI) | payer OTHER, SELFPAY ==
--- NOTE | 2018-12-01 | DI.MG.S_ITS ---
BILATERAL DIGITAL SCREENING MAMMOGRAM 3D/2D WITH CAD: 12/01/2018 CLINICAL: Routine screening. Family history of breast cancer. Comparison is made to exams dated: 10/28/2017 mammogram, 03/13/2016 mammogram, 02/26/2015 mammogram, and 01/23/2014 mammogram - [facility]. There are scattered fibroglandular elements in both breasts. Current study was also evaluated with a Computer Aided Detection (CAD) system. There is a mole marker on both breasts. No significant masses, calcifications, or other findings are seen in either breast. There has been no significant interval change. IMPRESSION: NEGATIVE There is no mammographic evidence of malignancy. A 1 year screening mammogram is recommended. This exam was interpreted at Station ID: [id number]. NOTE: For mammograms, a report in lay terms will be sent to the patient. Approximately 15% of breast malignancies will not be visualized mammographically. In the management of a palpable breast mass, a negative mammogram must not discourage biopsy of a clinically suspicious lesion. Electronically Signed By: Chi jenkins/kym:12/01/2018 12:57:16 letter sent: Normal Exam ACR BI-RADS Category 1: Negative [id number]
== END ==
PROVIDERS: PCP Internal Medicine; Visit Provider Internal Medicine
DX: Z12.31 Encounter for screening mammogram for malignant neoplasm of breast (principal); Z80.3 Family history of malignant neoplasm of breast
CPT/HCPCS: 77063; 77067

== ENCOUNTER → 2019-08-01 12:54 | Outpatient (CLI) | payer OTHER, SELFPAY | PROVIDERS: PCP Physician Assistant Medical; Visit Provider Physician Assistant Medical | DX: M85.852 Other specified disorders of bone density and structure, left thigh (principal); Z78.0 Asymptomatic menopausal state; E07.9 Disorder of thyroid, unspecified; Z90.722 Acquired absence of ovaries, bilateral; Z82.62 Family history of osteoporosis | CPT/HCPCS: 77080 ==

== ENCOUNTER → 2020-02-24 09:45 | Outpatient (CLI) | payer OTHER, SELFPAY ==
[2020-02-25 20:40] LABS: COVID19 Sendout Not Detected (Not Detect)
== END ==
PROVIDERS: PCP Physician Assistant Medical; Visit Provider Physician Assistant
DX: Z11.59 Encounter for screening for other viral diseases (principal)
CPT/HCPCS: 87635

== ENCOUNTER 2020-02-27 13:14 | Day surgery (SDC) | payer OTHER, SELFPAY ==
[2020-02-27 13:25] VITALS: BP 157/80; PULSE 74; RESP 16; TEMP 36.6; O2SAT 98; BMI 33.4
[2020-02-27] MEDS: SODIUM CHLORIDE 0.9% 1,000 ML 84 ML IV ×2 (13:55→14:53)
--- NOTE | 2020-02-27 14:10 | PM.HP.1 ---
History of Present Illness History of Present Illness Date Patient Seen: 02/27/20 Time Patient Seen: 14:10 Chief complaint: SDC Narrative: This is a 75-year-old woman with history of partial colectomy for a large polyp in 2012. She had a subsequent leak and emergency surgery for an end colostomy. The colostomy was taken down 4 months later. She had a follow-up colonoscopy in 2014, which was normal. Since then she has not had any symptoms of hematochezia or melena, unexplained weight loss or unexplained abdominal pain. She says she does have a hemorrhoid which gets inflamed from time to time. ROS Thirteen system review is otherwise negative other than as mentioned below and in HPI. PE: GENERAL: Well groomed and cooperative. Appears stated age. Answers questions promptly and appropriately. Vital signs noted. HENT: Normocephalic, atraumatic. Hearing intact. EYES: Conjunctiva pink, sclera white, no periorbital swelling. CARDIOVASCULAR: Regular rate. No pedal edema. RESPIRATORY: Non-tachypneic, breathing comfortably on room air. GASTROINTESTINAL: Abdomen soft and non-distended GENITALURINARY: No flank tenderness. MUSCULOSKELETAL: Equal tone and mass bilaterally. SKIN: Warm, dry, soft, appropriate color for ethnicity. No other lesions, rashes, or wounds. NEURO: Alert and Oriented X 3. No gross sensory deficits, or cognitive issues. PSYCH: Appropriate affect and mood. Patient History Medical History Chronic insomnia (Acute) Depression (Acute) Essential tremor (Acute) History of DVT (deep vein thrombosis) (Acute) Hyperglycemia (Acute) Hyperlipidemia (Acute) Hypothyroidism (Acute) Osteoporosis (Acute) Varicose veins of both lower extremities (Acute) Surgical History History of colon resection (Acute) Family & Social History Social History: household members spouse Tobacco & Substance use: Smoking Status Never smoker alcohol intake never Substance Use Type does not use Meds Home Medications and Allergies Home Medications Medication Instructions Recorded Confirmed Type mirtazapine 15 mg tablet 15 mg PO DAILY 03/21/18 05/24/18 History quetiapine 25 mg tablet 25 mg PO BEDTIME tab 04/15/18 05/24/18 History B-complex with vitamin C 1 cap PO DAILY #30 cap 04/19/18 02/27/20 Rx alendronate 70 mg tablet 70 mg PO QWEEK 04/19/18 02/27/20 History ascorbate calcium (vitamin C) 500 500 mg PO DAILY #30 tab 04/19/18 02/27/20 Rx mg tablet aspirin 81 mg tablet,delayed 81 mg PO DAILY 04/19/18 02/27/20 History release calcium carb-magnesium oxide-vit tab PO tab 04/19/18 05/24/18 History D3 400 mg-167 mg-133 unit tablet levothyroxine 88 mcg capsule 88 mcg PO DAILY #30 cap 04/19/18 02/27/20 Rx estradiol 10 mcg vaginal tablet See Rx Instructions .ROUTE 06/01/19 02/27/20 Rx .COMPLEX #12 tablet mirtazapine [Remeron] 15 mg PO BEDTIME 02/27/20 02/27/20 History quetiapine 12.5 mg PO BEDTIME 02/27/20 02/27/20 History Allergies Allergy/AdvReac Type Severity Reaction Status Date / Time Sulfa (Sulfonamide Allergy Mild RASH Verified 05/24/18 14:34 Antibiotics) [SULFA (SULFONAMIDE ANTIBIOTICS)] amoxicillin [AMOXICILLIN] Allergy Unknown VERY Verified 05/24/18 14:34 FLUSHED clavulanic acid Allergy Unknown VERY Verified 05/24/18 14:34 [CLAVULANIC ACID] FLUSHED epinephrine [EPINEPHRINE] Allergy Unknown SHAKING Verified 05/24/18 14:34 WITH DENTAL PROCEDURES fluticasone [FLUTICASONE] Allergy Unknown AGGITATION Verified 05/24/18 14:34 hydromorphone [HYDROMORPHONE] Allergy Unknown HALLUCINATIONS, Verified 05/24/18 14:34 NAUSEA diazepam [From Valium] Allergy Verified 05/24/18 14:34 meclizine Allergy Verified 05/24/18 14:34 Exam Vital Signs (past 8 hours): - 02/27/20 13:25 Temperature 97.9 F Pulse Rate 74 Respiratory Rate 16 Blood Pressure 157/80 H Pulse Oximetry 98 Oxygen Delivery Method Room Air Assessment & Plan Assessment and plan (1) Personal history of colonic polyps: Status: Acute (2) History of colon surgery: Status: Acute Assessment & Plan narrative: Risks and benefits of screening colonoscopy and possible polypectomy were discussed with the patient including risk of bleeding, perforation, need for additional procedures, risks of anesthesia. The patient desires to proceed with the colonoscopy procedure. COVID-19 COVID-19 status: Negative Result date/Date tested (Pos, Neg/Pending): 02/24/20 Time Spent With Patient Time with patient: 15-24 minutes Quality VTE Deep Vein Thrombosis/Pulmonary Embolism Present on Admission: No
--- NOTE | 2020-02-27 14:14 | PM.OP.ENDO ---
Operative Date/Time/Diagnoses Date of procedure: 02/27/20 Time of procedure: 14:15 Pre-op diagnosis: History of colon polyps, history of colon surgery Post-op diagnosis: other (No polyps) Procedure & Clinicians Study performed: Colonoscopy Conscious sedation performed by the endoscopy this Indications: This is a 75-year-old woman who had a previous colon resection for a benign colon polyp that could not be removed endoscopically. Her last colonoscopy 5 years ago was normal. Surgeon: Ximena Barron Procedure Notes SCOAP/Timeout: Performed Procedure in detail: The patient was brought to the room and placed in left lateral decubitus position with all bony prominences padded. A time-out was performed and then the patient was given procedural sedation starting with 3 mg of Versed and [100] mcg of fentanyl. Vitals were monitored throughout the procedure and remained stable. Once adequately sedated, the procedure was begun. A rectal exam was performed revealing moderate external hemorrhoids without evidence of thrombosis or bleeding. The colonoscope was then introduced to the rectum and advanced to the cecum in the usual fashion. []The cecum was identified by the appendiceal orifice, the mucosal tri-fold, and the ileocecal valve. The scope was then retracted while rotating side to side and examining each mucosal fold. No polyps or masses were seen. Her sigmoid anastomosis was seen. There was a [id number] anastomosis which was widely patent, without signs of any hypertrophy or recurrence of the polyp which was removed. [] At the conclusion of the procedure retroflexion was performed and [small grade 1-2 internal hemorrhoids without stigmata of bleeding were seen]. The scope was then withdrawn from the rectum the procedure was concluded. The patient tolerated the procedure well and was transferred to the PACU in stable condition. Scope withdrawal time: 7 Sedation minutes: 13 Findings: internal hemorrhoids Specimen(s): none sent Complications: none Impression: No polyps or lesions. Patent anastomosis from sigmoid resection. Small internal hemorrhoids and moderate external hemorrhoids without bleeding or thrombosis Post-procedure Recommendations: Colonscopy in 5 years (If healthy enough for repeat colonoscopy at that time. ) Follow up: as needed Disposition: PACU
[2020-02-27] MEDS: MIDAZOLAM 5 MG/5 ML VIAL IV (14:30)
[2020-02-27] MEDS: fentaNYL 250 MCG/5 ML INJ IV (14:31)
[2020-02-27 14:34] VITALS: BP 122/64; PULSE 70; RESP 16; TEMP 36.2; O2SAT 98
[2020-02-27 14:40] VITALS: BP 124/77; PULSE 68; RESP 16; O2SAT 96
[2020-02-27 14:44] VITALS: BP 133/73; PULSE 75; RESP 12; TEMP 36.2; O2SAT 94
[2020-02-27 15:00] VITALS: BP 135/66; PULSE 70; RESP 14; TEMP 36.9; O2SAT 95
== END 2020-02-27 15:10 | disposition home or self-care (01) ==
PROVIDERS: PCP Physician Assistant Medical; Referring Provider Surgery; Visit Provider Surgery
PROC: 0DJD8ZZ Inspection of Lower Intestinal Tract, Via Natural or Artificial Opening Endoscopic (ICD-10-PCS; CPT 45378; principal; 2020-02-27 14:30)
DX: Z12.11 Encounter for screening for malignant neoplasm of colon (principal); Z86.010 Personal history of colon polyps; K64.0 First degree hemorrhoids; Z98.890 Other specified postprocedural states; K64.4 Residual hemorrhoidal skin tags
CPT/HCPCS: G0105; 99152; J2250; J3010

== ENCOUNTER → 2020-11-05 11:20 | Outpatient (CLI) | payer OTHER, SELFPAY ==
--- NOTE | 2020-11-05 | DI.MG.S_ITS ---
BILATERAL DIGITAL SCREENING MAMMOGRAM 3D/2D WITH CAD: 11/05/2020 CLINICAL: Routine screening. Family history of breast cancer. Comparison is made to exams dated: 12/01/2018 mammogram, 10/28/2017 mammogram, and 03/13/2016 mammogram - [facility]. There are scattered fibroglandular elements in both breasts. Current study was also evaluated with a Computer Aided Detection (CAD) system. There is a mole marker on the right breast. No significant masses, calcifications, or other findings are seen in either breast. There has been no significant interval change. IMPRESSION: NEGATIVE There is no mammographic evidence of malignancy. A 1 year screening mammogram is recommended. This exam was interpreted at Station ID: [id number]. NOTE: For mammograms, a report in lay terms will be sent to the patient. Approximately 15% of breast malignancies will not be visualized mammographically. In the management of a palpable breast mass, a negative mammogram must not discourage biopsy of a clinically suspicious lesion. Electronically Signed By: Chencho Ramos acr/kym:11/05/2020 12:35:20 letter sent: Normal Exam ACR BI-RADS Category 1: Negative 3341F
== END ==
PROVIDERS: PCP Physician Assistant Medical; Referring Provider Physician Assistant Medical; Visit Provider Physician Assistant Medical
DX: Z12.31 Encounter for screening mammogram for malignant neoplasm of breast (principal)
CPT/HCPCS: 77063; 77067

== ENCOUNTER → 2021-11-10 10:12 | Outpatient (CLI) | payer OTHER, SELFPAY ==
--- NOTE | 2021-11-10 | DI.MG.S_ITS ---
BILATERAL DIGITAL SCREENING MAMMOGRAM 3D/2D WITH CAD: 11/10/2021 CLINICAL: Routine screening. Family history of breast cancer. Comparison is made to exams dated: 11/05/2020 mammogram, 11/05/2020 mammogram, and 12/01/2018 mammogram - [facility]. There are scattered fibroglandular elements in both breasts. Current study was also evaluated with a Computer Aided Detection (CAD) system. There are mole markers on both breasts. No significant masses, calcifications, or other findings are seen in either breast. There has been no significant interval change. IMPRESSION: NEGATIVE There is no mammographic evidence of malignancy. A 1 year screening mammogram is recommended. This exam was interpreted at Station ID: [id number]. NOTE: For mammograms, a report in lay terms will be sent to the patient. Approximately 15% of breast malignancies will not be visualized mammographically. In the management of a palpable breast mass, a negative mammogram must not discourage biopsy of a clinically suspicious lesion. Electronically Signed By: Vidal lee/kym:11/10/2021 12:54:31 letter sent: Normal Exam ACR BI-RADS Category 1: Negative 3341F
== END ==
PROVIDERS: PCP Physician Assistant Medical; Referring Provider Physician Assistant Medical; Visit Provider Physician Assistant Medical
DX: Z12.31 Encounter for screening mammogram for malignant neoplasm of breast (principal); Z80.3 Family history of malignant neoplasm of breast
CPT/HCPCS: 77063; 77067

== ENCOUNTER → 2022-11-14 10:25 | Outpatient (CLI) | payer OTHER, SELFPAY ==
--- NOTE | 2022-11-14 10:27 | DI.MG.S_ITS ---
BILATERAL DIGITAL SCREENING MAMMOGRAM 3D/2D WITH CAD: 11/14/2022 CLINICAL: Routine screening. Family history of breast cancer. Comparison is made to exams dated: 11/10/2021 mammogram, 11/05/2020 mammogram, and 12/01/2018 mammogram - [facility]. There are scattered areas of fibroglandular density in both breasts (category b / 25%-50% glandular tissue). Current study was also evaluated with a Computer Aided Detection (CAD) system. There are mole markers on both breasts. No significant masses, calcifications, or other findings are seen in either breast. There has been no significant interval change. IMPRESSION: NEGATIVE There is no mammographic evidence of malignancy. A 1 year screening mammogram is recommended. Based on the Tyrer Cuzick model (a risk assessment model) the patient's lifetime risk is 2.5% and her 10 year risk is 0.0%. According to the ACR, ACS, and NCCN guidelines, an annual breast MRI exam along with mammogram is recommended if the patient's lifetime risk is 20% or greater. This exam was interpreted at Station ID: [id number]. NOTE: For mammograms, a report in lay terms will be sent to the patient. Approximately 15% of breast malignancies will not be visualized mammographically. In the management of a palpable breast mass, a negative mammogram must not discourage biopsy of a clinically suspicious lesion. Electronically Signed By: Vidal lee/kym:11/16/2022 08:41:21 letter sent: Normal Exam ACR BI-RADS Category 1: Negative 3341F
== END ==
PROVIDERS: PCP Physician Assistant Medical; Referring Provider Physician Assistant Medical; Visit Provider Physician Assistant Medical
DX: Z12.31 Encounter for screening mammogram for malignant neoplasm of breast (principal); Z80.3 Family history of malignant neoplasm of breast
CPT/HCPCS: 77063; 77067

== ENCOUNTER → 2022-12-23 10:36 | Outpatient (CLI) | payer OTHER, SELFPAY ==
--- NOTE | 2022-12-23 10:50 | DI.DEXA.S_ITS ---
Bone Density Report Name: OTF CAMARGO Age: 77 Sex: Female Ethnicity: White Date of : 1945 Indication: osteopenia; Referring Provider: MEGHA BRANDON Study: Bone densitometry was performed. Exam Date: December 23, 2022 Accession number: [id number] Bone Density: Region BMD T-score Z-score Classification AP Spine(L1-L4) 1.043 0.0 2.5 Normal Femoral Neck (Left) 0.579 -2.4 -0.2 Osteopenia Total Hip (Left) 0.774 -1.4 0.6 Osteopenia Femoral Neck (Right) 0.581 -2.4 -0.2 Osteopenia Total Hip (Right) 0.758 -1.5 0.4 Osteopenia Total Hip Mean 0.766 -1.5 0.5 Osteopenia World Health Organization criteria for BMD impression classify patients as: Normal (T-score at or above -1.0), Osteopenia (T-score between -1.0 and -2.5), or Osteoporosis (T-score at or below -2.5). 10-year Fracture Risk(1): Major Osteoporotic Fracture 16% Hip Fracture 5.0% Reported Risk Factors: [place] (), Neck BMD=0.579, BMI=32.0 (1) FRAX(R) Version 3.08. Fracture probability calculated for an untreated patient. Fracture probability may be lower if the patient has received treatment. Previous Exams: -- Region Exam Age BMD T-score BMD Change BMD Change Date g/cm2 vs Baseline vs Previous -- AP Spine (L1-L4) 12/23/2022 77 1.043 0.0 -0.046 (-4.2%)# -0.046 (-4.2%)# 08/01/2019 74 1.089 0.4 Total Hip(Left) 12/23/2022 77 0.774 -1.4 0.072 (10.2%)# 0.072 (10.2%)# 08/01/2019 74 0.702 -2.0 Total Hip(Right) 12/23/2022 77 0.758 -1.5 0.036 (4.9%)# 0.036 (4.9%)# 08/01/2019 74 0.723 -1.8 -- *Denotes significance at 95% confidence level, LSC for AP Spine = 0.022 g/cm2, LSC for Total Hip = 0.027 g/cm2 # Denotes dissimilar scan types or analysis methods Impression: The patient has low bone mass, based on the Left Femoral Neck T-score. The patient has an estimated ten-year risk of hip fracture of 5% and an estimated ten-year risk of major fracture of 16%, based on the WHO FRAX algorithm. No significant bone loss was observed. Discussion: BONE DENSITY IS LOW AT ONE OR MORE SKELETAL SITES. THE PATIENT'S BMD AND CLINICAL RISK FACTORS CONTRIBUTE TO THIS PATIENT'S INCREASED RISK OF FRACTURE. This patient's lowest T-score is low at one or more skeletal sites. It meets the World Health Organization's (WHO) criteria for ?low bone mass? (T-score between -1.0 and -2.5). The patient's 10-year risk of hip fracture as calculated by FRAX exceeds the threshold where pharmacological therapy is recommended by the National Osteoporosis Foundation (NOF). However, all treatment decisions require clinical judgment and consideration of individual patient factors, including patient preferences, comorbidities, previous drug use, risk factors not captured in the FRAX model (e.g., frailty, falls, vitamin D deficiency, increased bone turnover, interval significant decline in bone density) and possible under or overestimation of fracture risk by FRAX. The patient should follow a healthful lifestyle (good nutrition with adequate calcium and vitamin D, and appropriate weight-bearing exercise). Follow-Up: Consider a repeat BMD and Vertebral Fracture Assessment (VFA) exam in 2 years or sooner if medically necessary, to reassess this patient's status. Reported by: IVAN TERAN M.D. on 12/23/2022 11:00:00 AM.
== END ==
PROVIDERS: PCP Physician Assistant Medical; Referring Provider Physician Assistant Medical; Visit Provider Physician Assistant Medical
DX: Z13.820 Encounter for screening for osteoporosis; M85.852 Other specified disorders of bone density and structure, left thigh; Z78.0 Asymptomatic menopausal state; Z90.710 Acquired absence of both cervix and uterus
CPT/HCPCS: 77080

== ENCOUNTER → 2023-11-22 12:57 | Outpatient (CLI) | payer OTHER, SELFPAY ==
--- NOTE | 2023-11-22 12:58 | DI.MG.S_ITS ---
BILATERAL DIGITAL SCREENING MAMMOGRAM 3D/2D WITH CAD: 11/22/2023 CLINICAL: Routine screening. Family history of breast cancer. Comparison is made to exams dated: 11/14/2022 mammogram, 11/10/2021 mammogram, and 11/05/2020 mammogram - [facility]. There are scattered areas of fibroglandular density in both breasts (category b / 25%-50% glandular tissue). Current study was also evaluated with a Computer Aided Detection (CAD) system. No significant masses, calcifications, or other findings are seen in either breast. There has been no significant interval change. IMPRESSION: NEGATIVE There is no mammographic evidence of malignancy. A 1 year screening mammogram is recommended. Based on the Tyrer Cuzick model (a risk assessment model) the patient's lifetime risk is 2.2% and her 10 year risk is 0.0%. According to the ACR, ACS, and NCCN guidelines, an annual breast MRI exam along with mammogram is recommended if the patient's lifetime risk is 20% or greater. This exam was interpreted at Station ID: [id number]. NOTE: For mammograms, a report in lay terms will be sent to the patient. Approximately 15% of breast malignancies will not be visualized mammographically. In the management of a palpable breast mass, a negative mammogram must not discourage biopsy of a clinically suspicious lesion. Electronically Signed By: Jose rivera/kym:11/22/2023 13:43:02 letter sent: Normal Exam ACR BI-RADS Category 1: Negative 3341F
== END ==
PROVIDERS: PCP Physician Assistant Medical; Referring Provider Physician Assistant Medical; Visit Provider Physician Assistant Medical
DX: Z12.31 Encounter for screening mammogram for malignant neoplasm of breast (principal); Z80.3 Family history of malignant neoplasm of breast; R92.323 Mammographic fibroglandular density, bilateral breasts
CPT/HCPCS: 77063; 77067

== ENCOUNTER → 2024-12-05 14:57 | Outpatient (CLI) | payer OTHER, SELFPAY ==
--- NOTE | 2024-12-05 14:58 | DI.MG.S_ITS ---
MM screening mammo BI: 12/05/2024. BI-RADS: 1 CLINICAL: 79-year old female for bilateral screening mammogram. Tyrer-Cuzick lifetime risk of 1.3%. No personal or first-degree family history of breast cancer. PRIOR EXAMS 11/22/2023, 11/14/2022, 11/10/2021, 11/05/2020, 12/01/2018, 10/28/2017, 03/13/2016, 02/26/2015. MAMMOGRAPHY TECHNIQUE: 2D and 3D (tomosynthesis) digital mammographic views obtained, with additional images as needed for full coverage. Current study was also evaluated with a Computer Aided Detection (CAD) system. DENSITY B. There are scattered areas of fibroglandular density. MAMMOGRAPHY FINDINGS Bilateral: No suspicious mass, asymmetry, microcalcification, or other abnormality seen. IMPRESSION: * No evidence of malignancy. RECOMMENDATIONS Bilateral * Annual screening mammography. OVERALL ASSESSMENT CATEGORY BI-RADS-1: Negative. The [employer] recommends annual screening mammography beginning at age 40 for women with average risk of breast cancer. ELECTRONICALLY SIGNED: Vidal Jenkins M.D. on 12/06/2024 at 10:52:13 AM PT Interpreting Station ID: [id number]
== END ==
PROVIDERS: PCP Nurse Practitioner Family; Referring Provider Nurse Practitioner Family; Visit Provider Nurse Practitioner Family
DX: Z12.31 Encounter for screening mammogram for malignant neoplasm of breast (principal)
CPT/HCPCS: 77063; 77067